=== PATIENT | female | born 1940 | race Caucasian/White ===

== ENCOUNTER 2019-05-17 05:22 | Inpatient (IN) | payer SELFPAY ==
[2019-04-24 13:49] VITALS: BP 159/63; PULSE 65; RESP 16; TEMP 36.3; O2SAT 96; BMI 40.2
--- NOTE | 2019-04-24 13:58 | SDCEKG_ITS ---
Test Reason : Blood Pressure : / mmHG Vent. Rate : 060 BPM Atrial Rate : 061 BPM P-R Int : 000 ms QRS Dur : 154 ms QT Int : 446 ms P-R-T Axes : 000 -88 081 degrees QTc Int : 446 ms Electronic atrial pacemaker Left axis deviation Non-specific intra-ventricular conduction block Inferior infarct , age undetermined Anterolateral infarct , age undetermined Abnormal ECG Confirmed by ISABELA VELAZQUEZ ([id number]), mapping editor PIO HOWARD ([id number]) on 04/26/2019 2:14:21 PM Referred By: Matthew Flores Confirmed By:ISABELA VELAZQUEZ
[2019-04-24 16:25] LABS: Absolute Neutrophil Count 4.8 X10^3/uL (2.0-7.7); Basophil# 0.04 X10^3/uL; Basophil% 0.6 % (0-1); Eosinophil# 0.17 X10^3/uL; Eosinophils% 2.6 % (0-5); Hematocrit 34.2 % (37-47); Hemoglobin 11.4 g/dL (12.0-15.0); Lymphocyte % 15.1 % (19-41); Mean Corp Hgb Conc 33.3 g/dL (32-36); Mean Corpuscular Hgb 32.3 pg (27.0-32.0); Mean Corpuscular Volume 96.9 fL (81-99); Mean Platelet Vol. 10.2 fl (6.2-12.0); Monocyte# 0.63 X10^3/uL; Monocyte% 9.5 % (0-10); NRBC Flagged by Analyzer 0 % (0-5); Neutrophil # 4.77 X10^3/uL (2.7-7.7); Neutrophil % 71.9 % (47-70); Platelet Count 263 K/mm3 (150-450); RBC Distribution Width CV 12.7 % (11.6-14.6); RBC Distribution Width SD 44.9 fl (35.1-43.9); Red Blood Count 3.53 M/mm3 (4.2-5.4); White Blood Count 6.6 K/mm3 (4.4-11.0)
--- NOTE | 2019-04-24 21:13 | HP.PCM_ITS ---
History and Physical History and Physical [facility] Patient Name: Tiera Drake : 1940 From: [place] [facility] PA-C DATE OF SURGERY: 05/17/2019 SCHEDULED PROCEDURE: revision right total hip arthroplasty HISTORY OF PRESENT ILLNESS: Preoperative history and physical exam was performed on April 24, 2019. This is a 78-year-old female who has had ongoing pain in her right hip since previous surgeries. Patient has had intermittent, aching, stabbing pain for the right hip. She has difficulty with pain going up and down stairs, walking, and riding in a vehicle. Patient has difficult time with activities of daily living including housework, shopping. She has fallen and tripped/stumbled due to the hip pain. Patient states she feels unsafe without the use of the Rollator/walker. Patient has had previous right total hip arthroplasty February 2013 in which she was doing well postoperatively. Patient had a back surgery in 2013 patient became ill after this sustaining a infection. Patient states the infection went to her hip and she had removal of a total hip in July 2014. Antibiotic spacer was placed. Patient then underwent revision total hip arthroplasty October 2014. Since that surgery she states her hip never felt the same. Patient sustained a fall in October 2017 landed on her hip. Patient underwent another back surgery in January 2018. Patient has continued to have difficulty and pain in her hip. Patient denies any recent chest pain, shortness of breath, fevers chills, recent infection. She has been limited in her weight on the right lower extremity with use of the Rollator. We have obtained surgical clearance from her community youth secretary Dr. Cotton and PCP Dr. Salinas. Patient has a medical history pertinent for coronary artery disease with pacemaker, previous stent 2016. She has had multiple heart cast. She has had recent echocardiogram August 2018. She has type 2 diabetes mellitus, aortic stenosis, hyperlipidemia, history of previous DVT, history of atrial fibrillation. After failing conservative measures and discussing treatment options with Dr. Matthew Flores, the patient does wish to proceed with a revision right total hip arthroplasty. REVIEW OF SYSTEMS: ROS: Const: Reports hard of hearing RT EAR Denies change in appetite, fever,or weight change. CV: Reports heart murmur, but denies chest pain and irregular heartbeat. Resp: Denies cough, pneumonia, SOB, tuberculosis and wheezing. GI: Reports heartburn, but denies constipation, diarrhea, difficulty swallowing, nausea, bloody stools and vomiting. : Urinary: reports incontinence. Musculo: Reports leg swelling, limp, trouble walking and weakness. Skin: Denies Raynaud's, history of shingles and tattoo. Neuro: Reports difficulty with balance but denies ambulatory dysfunction, dizziness, numbness/tingling and tremor. Psych: Reports stress, but denies anxiety and insomnia. Clement/Lymph: Reports anemia and past transfusion, but denies bleeding/bruising tendency. Reviewed, no changes. PAST MEDICAL HISTORY: Advance Care Plan: Other Directive, LIVING WILL Effective Date: 12/01/2018 PMH: Medical Problems: Arthritis, Coronary Artery Disease (CAD), Diabetes, High Blood Pressure, Hyperlipidemia, Celulitis Accidents: None Surgical Hx: Back Surgery - 2005/2006/2010/2013/2017 Gallbladder - (2006) Pacemaker - (11/2014) Heart Stent - (02/2015) 2 Heart Stents - (03/2016) RT Hip Antibiotic Spacer Placed - (07/2014) 2014 RT THR - (02/2013) RT THR Revision - (07/2014) Anesthesia Complications: Anesthesia Complications Assistive Devices: Cane, Dentures, Glasses, Walker Reviewed and updated. 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 Personal Habits: Cigarette Use: Never Smoked Cigarettes.Alcohol: Denies use.Drug Use: Denies Use.Enjoy Exercising: Never Exercises. Reviewed, no changes. VITALS: Ht: 60.5 Wt: 208lb Wt k.349 BMI: 39.9 BP: 157/71 Pulse: 67 Resp: 14 T: 96. 7 T: 35.9C ALLERGIES: Keflex - Rash Lopid - Nausea Januvia - Cold Hand Tricor Zetia - Itching Sulfa Drugs Benadryl Bactrim - Hives Atenolol Actos Captopril - Itching Glucophage - Nausea Statins - Muscle Pain Amoxicillin Cephalosporins - Rash MEDICATIONS: , Humalog 15 Unit And 13 Unit 3x daily, Hydrochlorothiazide 25 mg 1 by mouth every day, Lantis 29-30 Units bedtime, Nexium 40 mg 1 by mouth every day, B Complete 4x daily, Calcium 500 + D3 250-500 MG-Unit 3x daily, Joint Health 2x daily, Steedman-3 1000 mg 2X daily, Multivitamin Adult 1x daily, Ezetimibe 10 mg 1po qd, Acebutolol HCL 400 mg 1po qd, Clopidogrel Bisulfate 75 mg 1po qd, Ferrous Sulfate 325 mg 1po qd, Sertraline HCL 25 mg 2po qd, Narcosoft Herbal Lax 1po qd, Lecithin 4po qd, Vitamin E 400 Unit 1po qd, Vitamin D3 1po qd PRE-OP EXAM: General appearance:NORMAL Other: Eyes: Conjunctivae and lids: NORMAL Pupils: ERR Ears, Nose, Mouth, and Throat: NORMAL Other: Inspection of lips, teeth and gums: NORMAL Other: Neck: Examination of neck: no masses noted. Respiratory: Assessment of respiratory effort: NORMAL Other: Auscultation of lungs: clear to auscultation no wheezes, rhonchi or rales. Cardiovascular: Auscultation of heart: regular rate and rhythm, positive systolic murmur Exam of carotid arteries: NORMAL Other: Gastrointestinal: Exam of abdomen: soft, nontender, nondistended bowel sounds present. PHYSICAL EXAMINATION: Patient walks with an antalgic gait with protected weightbearing on the right lower extremity with use of a Rollator. Previous incisions are well healed without signs of erythema or infection. She has tenderness to palpation along the anterior and lateral right hip. Patient has increased pain with any range of motion of the right hip. Sensation intact to light touch. IMAGING STUDIES: Previous x-rays of the right hip reveal a cemented total hip arthroplasty with cerclage wires with cement mantel fracturing. Distally at appears well fixed but there is poor bone stock proximately with lysis of the greater trochanter bone. There is lucency between the underlying bone and cement mantle. The acetabular cup appears well fixed with screws. No appreciable lucencies around the cup. IMPRESSION: 1. Painful right total hip arthroplasty with loosening and previous fracture 2. Hypertension 3. Type 2 diabetes mellitus 4. Coronary artery disease with previous heart catheter, stent placement, pacemaker 5. Aortic stenosis 6. History of atrial fibrillation 7. Hyperlipidemia 8. History of DVT PLAN: Dr. Matthew Flores did discuss and review with the patient all treatment options including surgical versus nonsurgical options. Patient does wish to proceed with the above-stated procedure. Potential risks, benefits, and complications of the procedure were discussed in detail including but not limited to , infection, nerve and blood vessel damage, persistent pain, numbness, tingling, paresthesias, blood clot, pulmonary embolism, and requirement for possible further surgery. The patient expressed full understanding and has no further questions for the doctor. Patient does agree to proceed with the above-stated procedure and has signed the surgery consent form. Patient could not tolerate Xarelto, Pradaxa and Eliquis arthralgias/myalgias. She also is unable to take aspirin due to nosebleeds. She currently takes Plavix. we will require the use of Lovenox postoperatively for DVT prophylaxis. This dictation was created using voice recognition software. Phonetic and/or grammatical errors may exist. ___ I have re-examined the patient. There are no clinical changes since date of exam. ___ See progress notes for changes. ___ Dictated on admission Date: Time: Signature:
[2019-05-17] VITALS (15 sets, daily range): BP systolic 102–174; BP diastolic 41–63; PULSE 60–75; RESP 16–18; TEMP 36.3–36.6; O2SAT 92–100; BMI 40.2
[2019-05-17] MEDS: Lactated Ringers 500 ML 999 ML IV ×2 (06:11→11:30)
[2019-05-17] MEDS: Gabapentin 600 MG Tablet PO (06:23)
[2019-05-17] MEDS: Acetaminophen 500 MG Tablet 1000 MG PO ×3 (06:23→22:46)
[2019-05-17 06:55] LABS: Bedside Glucose 205 mg/dL (70-110)
[2019-05-17] MEDS: Insulin Lispro 100 UNIT/ML INSULN.PEN SC ×3 (07:09→22:49)
[2019-05-17] MEDS: Heparin 10,000 UNITS/10 ML Vial 10000 UNITS (08:25)
[2019-05-17] MEDS: dexAMETHasone 10 MG/ML Vial IV (08:25)
[2019-05-17] MEDS: Lactated Ringers 1,000 ML 125 ML IV ×3 (09:15→22:47)
--- NOTE | 2019-05-17 11:30 | RAD_ITS ---
STUDY: X-RAY - PELVIS AND RIGHT HIP REASON FOR EXAM: Female, 78 years old. Post op right total hip revision TECHNIQUE: 3 views of the pelvis and hip. COMPARISON: None. FINDINGS: The patient is status post revision of the right total hip replacement. There is a long femoral component. There is good alignment. Postoperative soft tissue changes. RAD/Hip Min 2 Views (Portable) IMPRESSION: 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 There is good alignment. Postoperative soft tissue changes. Electronically Signed: Ck Batista, at 13:07 EDT , Service support ,
--- NOTE | 2019-05-17 11:34 | PCM.OPRPT ---
Report of Operation Date of Procedure: 05/17/19 Pre-Operative Diagnosis: Right hip prosthetic loosening femoral component with periprosthetic greater trochanteric fracture. Post-Operative Diagnosis: Right hip prosthetic loosening femoral component with periprosthetic greater trochanteric fracture. Surgery/Procedure Performed:: Right hip revision total hip replacement both components Description of Surgical Findings:: Stable hip. Leg lengths restored. senior director: Lul Salazar Type of Anesthesia:: Spinal Anesthesiologist: Gilmer Saavedra Special Medications: 900 mg clindamycin, 1 g TXA at incision, 1 g TXA closure, 10 mg Decadron, joint cocktail (5 mg Duramorph, 30 mL of 0.5% Ropivicaine, 1000 units of epinephrine, 30 mg of Toradol). Additional 600 mg of clindamycin 2 and half hours after incision was made. Specimen's removed: 3 separate specimens were sent to microbiology. Resected bone was sent to pathology. Estimated Blood Loss (mL): 500 mL Fluids Replaced: 125 mL Cell Saver, 2 L crystalloid Description of Procedure: Components used: 1. [place] GMR S femoral component 11 mm x 203 mm in length, 30 mm extension, proximal femoral component with trochanteric 2. [place] Biolox delta 36 mm, 0 mm neck femoral head 3. [employer] 30 mm liner 4 mm lateralized, 20 degree posterior burgess Brief history operative indications: 78-year-old female who had previous hip replacement in [place] followed by infection and antibiotic spacer. New hip was reimplanted after two-stage revision. This was with the cement mantle. The cemented implant the cement mantle fractured and the greater trochanteric region also fractured. Based on her continued pain we did discuss potential for infection. Based on patient's medical comorbidities we elected to proceed with retention of implants that were well fixed. Risks and benefits were discussed with the patient which included but were not limited to blood loss, DVTs, PEs, infection, neurovascular damage, and dislocation. In light of all this patient did agree to proceed with a total hip arthroplasty. Procedure: On the date of procedure the patient's r hip was marked in the preoperative area. Patient was then taken back to the operating room where anesthesia assumed control of the C-spine and airway and administered anesthetic. Patient was transferred to the operating table and placed in the lateral decubitus position with the affected hip up. The patient was secured in the bed with the lateral positioners and leg lengths were checked. The r lower extremity was then prepped out in a sterile fashion using chlorhexidine while the surgeon scrubbed. Upon reentering the room the r lower extremity was draped in the standard orthopedic fashion and the incision was marked. A timeout was called and everyone agreed upon the side, the site, the procedure be performed, antibiotics given, and patient's identity. At this time incision was made through skin, subcutaneous tissue, and fat down to fascia. Once we got to the fascia we carefully identified this layer. The fascia was then incised and a Charley retractor was placed. At this point we attempted to identify identifiable structures. Based on the stiffness of the hip and rigidity as well as the expected resection the gluteus marcy was released. Once was done we carefully externally rotated the hip. 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 At this time we elected to resect this to help with exposure. After this was the resected we were able to carefully identify the hip. We did a careful synovectomy around the implant identified the cup. The hip was then reduced. The component was easily removed as well as the proximal portion of the cement mantle. Once we did the removal of the implant we found the additional cables. Based on the radiographs the bone was stable just below the second cable. We dissected around the femur and made a perpendicular saw cut and resected the additional bone. This was measured for our proximal implant. At this point we carefully debrided the cement mantle as well as possible. We reamed the bone. We did note that there was a cortical breach laterally. Based on this we elected to use the longer stem implant for better fixation and to fully bypass cortical breach. Once the femur was adequately prepped we then trialed with the previous liner in place. This gave us near equal leg lengths. For further stability we wanted to remove the 10 mm liner and placed a 20 mm liner. Also the previous liner fluid was in the posterior inferior position we needed to be in the posterior superior position for better stability. We exposed the acetabulum and used an osteotome to remove the liner. Once everything was removed from the hip we then used 6 L of normal saline to irrigate out the wound. We then opened the new liner and impacted into place after exploring the wound and verifying adequately debrided and irrigated. Hemostasis was then obtained. The femoral canal was adequately prepped and a cement restrictor was placed. The femoral components were open and the Mercedes tapers were impacted. 1 package of cement with 1 g of vancomycin was used to make a cement spacer around the body part of the femur. Once this was secured cement was mixed and the femoral canal was pressurized. The breech in the cortex was identified and excess cement was removed. The femoral component was cemented and 25 degrees anteversion based on the angle of the leg from the knee. Once the cement was cured we again trialed a 36 mm +0 mm femoral head. This gave us good leg lengths and a stable hip with a new liner. Hip was removed #5 FiberWire's were placed around the central portion of the neck where the holes were. Trunnion was cleaned. Final head was open and impacted into place. Hip was again reduced. He remained stable with good leg lengths. At this time the wound was copiously out normal saline. We did a chlorhexidine lavage as well as a TXA lavage. The injection was then placed. We then carefully used a #5 FiberWire's around the femoral neck to repair the soft tissues. The distal fascia was also repaired. The lateral fascia was repaired. A #1 Vicryl layer was used deep and 2-0 Vicryl for superficial skin closure as well as [place] for final skin closure. A sterile dressing was placed. Patient was awakened by anesthesia and transferred to the [facility]. Patient was then transferred to the PACU for recovery. Postoperative plan: Patient will get 24 hours postop antibiotics. Doxycycline for 7 days so we follow cultures patient will get in-house physical therapy and will be weight-bear as tolerated. Patient will follow up in office in 2 weeks for a wound check and x-rays. Strict posterior hip precautions for 3 weeks. - Complications No intraoperative complications - Admit VTE Documentation VTE Present on Admission: No VTE Mechan Device Prophylaxis: SCD's, Thigh High FLOYD Hose VTE Pharm Prophylaxis ordered?: Yes
[2019-05-17 12:20] LABS: Bedside Glucose 180 mg/dL (70-110)
--- NOTE | 2019-05-17 12:41 | HIP_PTH ---
PATIENT: MIGUEL BERRY LOC: [facility]3 U#:[id number] AGE/SX: 78/F [place] [facility] [place]: Dr. Sierra Virgen MD : 1940 BED: 1 DIS: 05/19/2019 SPEC #: [id number] RECD: 05/17/19 12:41 STATUS: VICTOR MANUEL RETrae #: [id number] BABS: 05/17/19 12:[address]: Matthew Flores DEPT: SURGICAL PATHOLOGY RECD BY: Eb Mendoza ENTERED: 05/17/19 13:05 SP TYPE: TOTAL HIP OTHR DR: Dr. Mumtaz Salinas MD Tissues: Hip, NOS Procedures: Decalcification bone/plaque Surgery Specimen Level IV HEADER OPERATION: ERAS, revision total hip arthroplasty PRE-OP DIAGNOSIS: Painful right total hip arthroplasty with loosening and previous fracture TISSUE SUBMITTED: Right femur bone MICROSCOPIC DIAGNOSIS Right femur bone, revision total hip arthroplasty: Pieces of bone with reactive changes. Fragments of dense fibroconnective tissue and reactive synovial tissue with histiocytic reaction and foreign body giant cell reaction. DAVID:jess 05/22/19 MICROSCOPIC DESCRIPTION Slides are reviewed. GROSS DESCRIPTION Received is one container labeled with the patient's name and designated right femoral bone. The specimen consists of two pieces of bone. One segment consists of a tubular portion of bone measuring 7 cm in length and 4 cm in diameter and contains a metallic cable at one end. The second fragment consists of a U-shaped fragment of bone measuring 6.5 x 4.5 x 3.5 cm. Adherent fragments of pink-yellow soft tissue are noted on both fragments. Mail Carrier And Clerk sections are submitted in two cassettes as follows: 1 - soft tissue, 2 - packaging sales representative sections of U-shaped fragment of bone after decalcification. / AM:jess 05/17/19 TC:5 CPT: 92518, [id number]
--- NOTE | 2019-05-17 14:15 | PCM.CONS.GEN ---
Problem List (1) Osteoarthritis of right hip Status: Chronic Qualifiers: Osteoarthritis type: unspecified Qualified Code(s): M16.11 - Unilateral primary osteoarthritis, right hip (2) HTN (hypertension) Status: Chronic Qualifiers: Hypertension type: essential hypertension Qualified Code(s): I10 - Essential (primary) hypertension (3) HLD (hyperlipidemia) Status: Chronic Qualifiers: Hyperlipidemia type: unspecified Qualified Code(s): E78.5 - Hyperlipidemia, unspecified (4) CAD (coronary artery disease) Status: Chronic Qualifiers: Coronary Disease-Associated Artery/Lesion type: unspecified vessel or lesion type [place] vs. 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: with correction use Diabetes mellitus complication status: with other specified complication Qualified Code(s): E11.69 - Type 2 diabetes mellitus with other specified complication; Z79.4 - care home (current) use of insulin (6) Morbid obesity Status: Chronic (7) Valvular heart disease Status: Chronic (8) GERD (gastroesophageal reflux disease) Status: Chronic Qualifiers: Esophagitis presence: esophagitis presence not specified Qualified Code(s): K21.9 - Gastro-esophageal reflux disease without esophagitis (9) PAF (paroxysmal atrial fibrillation) Status: Chronic (10) History of DVT (deep vein thrombosis) Status: Chronic (11) Anxiety and depression Status: Chronic Reason for Consult Date of Consultation: 05/17/19 Reason for Consultation: Medical management History of Present Illness: The patient is a 78 y/o F w/ PMHx: Valvular Heart Disease (Aortic stenosis), Anxiety and Depression, Diabetes mellitus type II, Morbid obesity, HTN, HLD, Fe deficiency anemia, Hx DVT, PAF, Hx MIs, CAD s/p PCI who presents to the [facility] on 05/17/19 for planned surgery per Dr. Flores. Patient with history of prior hip replacement, right in [place] with unfortunate postoperative infection requiring antibiotic spacer with a new hip reimplanted after two-stage revision at that time with unfortunate cement mantle fracturing as well as greater trochanteric region fracture with ongoing pain and infection risk therefore right hip revision with a total hip replacement of components performed. Medical consultation requested per orthopedic surgery. Patient denies any acute complaints post-operative. She notes feeling fatigued and groggy but notes pain controlled. Past Medical History Past Medical History (Chronic Problems): Chronic Problems Osteoarthritis of right hip (Chronic) HTN (hypertension) (Chronic) HLD (hyperlipidemia) (Chronic) CAD (coronary artery disease) (Chronic) Diabetes mellitus, type II (Chronic) Morbid obesity (Chronic) Valvular heart disease (Chronic) GERD (gastroesophageal reflux disease) (Chronic) PAF (paroxysmal atrial fibrillation) (Chronic) History of DVT (deep vein thrombosis) (Chronic) Anxiety and depression (Chronic) Allergies amoxicillin Allergy (Verified 05/17/19 06:00) Unknown apixaban [From Eliquis] Allergy (Verified 05/17/19 06:00) Unknown atenolol Allergy (Verified 05/17/19 06:00) Unknown cephalexin [From Keflex] Allergy (Verified 05/17/19 06:00) Rash Cephalosporins Allergy (Verified 05/17/19 06:00) Rash ezetimibe [From Zetia] Allergy (Verified 05/17/19 06:00) Itching fenofibrate [From Tricor] Allergy (Verified 05/17/19 06:00) Unknown hydrocodone [From [place]] Allergy (Verified 05/17/19 06:00) Rash pioglitazone [From Actos] Allergy (Verified 05/17/19 06:00) Unknown sulfamethoxazole [From Bactrim] Allergy (Verified 05/17/19 06:00) Hives trimethoprim [From Bactrim] Allergy (Verified 05/17/19 06:00) Hives captopril Adverse Reaction (Verified 05/17/19 06:00) Itching diphenhydramine [From Benadryl] Adverse Reaction (Verified 05/17/19 06:00) Unknown gemfibrozil [From Lopid] Adverse Reaction (Verified 05/17/19 06:00) Nausea metformin [From Glucophage] Adverse Reaction (Verified 05/17/19 06:00) Nausea sitagliptin [From Januvia] Adverse Reaction (Verified 05/17/19 06:00) cold hands Jgvffyi-Lbf-Udf Reductase Inhibitor Adverse Reaction (Verified 05/17/19 06:00) muscle pain Sulfa (Sulfonamide Antibiotics) Adverse Reaction (Verified 05/17/19 06:00) Unknown Home Medications: Ambulatory Orders Medication Instructions Recorded Acebutolol HCl 400 mg PO BID 04/24/19 Calcium Carb/Vit D3/Minerals [Sm 1 ea PO BID 04/24/19 Calcium 600+Minerals Tab] Cholecalciferol (VIT D3) [Vitamin 1,000 unit PO DAILY 04/24/19 D] Clopidogrel Bisulfate [Clopidogrel] 75 mg PO DAILY 04/24/19 Esomeprazole Mag Trihydrate 40 mg PO DAILY 04/24/19 [Nexium] Ezetimibe [Zetia] 10 mg PO DAILY 04/24/19 Ferrous Sulfate 325 mg PO DAILY 04/24/19 Herb Lax 1 tab PO PRN PRN 04/24/19 Hydrochlorothiazide [Hctz] 25 mg PO DAILY 04/24/19 Insulin Glargine [Lantus ([facility])] 25 - 28 units SUBCUT QHS 04/24/19 Insulin Lispro [Humalog KwikPen] 17 unit SQ DAILY 04/24/19 Insulin Lispro [Humalog KwikPen] 17 unit SQ DINNER 04/24/19 Insulin Lispro [Humalog Kwikpen] 12 unit SQ LUNCH 04/24/19 Lecithin, Soy [Lecithin] 800 mg PO BID 04/24/19 Liver Detox Complex 1 tab PO BID 04/24/19 Multivitamin with Minerals 1 ea PO DAILY 04/24/19 [Multiple Vitamin] Alliance Guard 1 tab PO BID 04/24/19 Sertraline HCl [Zoloft] 25 mg PO BID 04/24/19 Sr Camila C 500 mg PO BID 04/24/19 Vital Mag 1 tab PO DAILY 04/24/19 Vitamin B Complex 1 ea PO BID 04/24/19 Vitamin E 400 unit PO DAILY 04/24/19 Surgical History: - - Prior right total hip replacement with eventual antibiotic spacer and two-stage revision, recent surgical intervention per Dr. Flores with revision of right total hip arthroplasty, back surgery, cholecystectomy, PCI, pacemaker placement. 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 Denies: Chills, Fever, Weight Change HEENT: Denies: Head Aches, Sinus Congestion, Sinus Drainage Cardiovascular: Denies: Chest Pain, Palpitations Respiratory: Denies: Cough, Shortness of breath at rest, Sputum production Gastrointestinal: Denies: Abdominal Pain, Nausea, Vomiting Genitourinary: Denies: Dysuria Musculoskeletal: Reports: Joint Pain, Joint stiffness, Joint swelling, Joint Tenderness, Leg Pain Skin: Reports: Skin Changes. Denies: Rash, Wounds Neurological: Denies: Numbness, Tingling, Focal weakness Psychiatric: Reports: Anxiety, Depression. Denies: Homicidal Ideations, Suicidal Ideations Hematologic/ Lymphatic: Reports: Anemia. Denies: Easy Bruising, Easy Bleeding Subjective: Laying in the medical surgical bed, fatigued and mildly groggy, notes pain controlled. Objective: Physical Examination: General: awakens but groggy, alert when awoken, oriented x 3 and cooperative, laying in the medical surgical bed, fatigued, denies any pain. Skin: normal color, turgor, no icterus, cyanosis except expected postop changes with dressing in place status post right hip revision. HEENT: AT/NC, EOMI, PERRLA, dry MM, no carotid bruits or JVD noted. Lungs: CTA bilaterally, moderate effort, moderate decrease BL bases, no rales, ronchi or wheezing. Heart: Paced; no gallop, rub audible. Abdomen: soft, morbidly obese, NTTP, ND, normal BS, no HSM; however habitus makes examination difficult. Extremities: no cyanosis, clubbing, status post right hip revision, dressing in place. Neurological: Patient awakens but groggy, alert when awoken, oriented x 3; cognitive function decreased given fatigue and grogginess but near baseline intact; pupils equally reactive to light and accomodation; cranial nerves II-XII grossly normal, moving extremities but limitation right lower extremity given recent right hip revision, strength accordingly severely global decrease. Psychiatric: affect appears fatigued, flat, no acute evidence of depressive or anxiety feelings. - Physical Exam Vitals/I&O's: Vital Signs Temp Pulse Resp BP Pulse Ox 97.8 F 60 18 137/58 H 100 05/17/19 13:28 05/17/19 13:28 05/17/19 13:28 05/17/19 13:28 05/17/19 13:28 Oxygen Flow Rate (L/min) 6 Oxygen Delivery Method Simple Mask Weight: 209 lb 7.026 oz Body Mass Index (BMI) 40.2 Finger Stick Blood Glucose 180 Intake and Output for Last 24 Hours 05/15/19 05/16/19 05/17/19 23:59 23:59 23:59 Intake Total 1779 Balance 1779 Laboratory Results 05/17/19 06:08: POC Glucose 205 H 05/17/19 12:09: POC Glucose 180 H Current Medications Acetaminophen (Tylenol) 1,000 mg PO Q8 [facility] Calcium/Vitamin D (Os-Meliton 500mg + D) 1 tablet PO BIDCM [facility] Cholecalciferol (Vitamin D (25mcg)) 1,000 unit PO DAILYCM [facility] Clopidogrel Bisulfate (Plavix) 75 mg PO DAILY [facility] Doxycycline Monohydrate (Doxycycline) 100 mg PO BID [facility] Ezetimibe (Zetia) 10 mg PO DAILY [facility] Enoxaparin Sodium (Lovenox) 40 mg SC DAILY@0600 [facility] Enteral Nutritional Formula (Ensure Surgery) 237 ml PO TIDCM [facility] Famotidine (Pepcid) 20 mg PO DAILY [facility] Ferrous Sulfate (Ferrous Sulfate) 325 mg PO DAILY@0800 [facility] Hydrochlorothiazide (Hctz) 25 mg PO DAILY [facility] Lactated Ringer's () 1,000 mls @ 125 mls/hr IV .Q8H [facility] Last Admin: 05/17/19 12:16 Dose: 125 mls/hr Documented by: Lactated Ringer's () 1,000 mls @ 125 mls/hr IV .Q8H [facility] Clindamycin Phosphate 600 mg/ (Dextrose) 54 mls @ 100 mls/hr IV Q6H [facility] Stop: 05/18/19 05:33 Insulin Glargine (Lantus ([facility])) 25 - 28 units SC QHS [facility] Insulin Human Lispro (Humalog Kwikpen (Bk)) 12 unit SC LUNCH [facility] Insulin Human Lispro (Humalog Kwikpen (Bk)) 17 unit SC DAILY@0800 [facility] Insulin Human Lispro (Humalog Kwikpen (Bkc)) 17 unit SC DINNER [facility] Ketorolac Tromethamine (Toradol ([facility])) 15 mg IV Q6H PRN PRN PRN Reason: Pain Score 1-5/10 Stop: 05/19/19 11:32 Meloxicam (Mobic) 7.5 mg PO BID [facility] Morphine Sulfate () 2 - 4 mg IV Q2H PRN PRN PRN Reason: Pain Score 4-10/10 Morphine Sulfate () 2 - 4 mg IV Q2H PRN PRN PRN Reason: Pain Score 4-10/10 Multivitamins/Minerals (Multivitamin With Minerals (Bkc)) 1 tablet PO DAILY@0800 [facility] Non-Formulary Medication (Acebutolol Hcl) 400 mg PO BID [facility] Ondansetron HCl (Zofran) 4 mg IV Q8H PRN PRN PRN Reason: NAUSEA Oxycodone HCl (Oxyir) 5 - 10 mg PO Q4H PRN PRN PRN Reason: Pain Score 4-10/10 Pantoprazole Sodium (Protonix) 40 mg PO DAILY [facility] Promethazine HCl (Phenergan) 12.5 mg IM Q6H PRN PRN; Protocol PRN Reason: NAUSEA/VOMITING Senna/Docusate Sodium (Senokot-S, Pattie-Colace) 2 tablet PO BID [facility] Sertraline HCl (Zoloft) 25 mg PO BID [facility] Assessment/Plan The patient is a 78 y/o F w/ PMHx: Valvular Heart Disease (Aortic stenosis), Anxiety and Depression, Diabetes mellitus type II, Morbid obesity, HTN, HLD, Fe deficiency anemia, Hx DVT, PAF, Hx MIs, CAD s/p PCI who presents to the [facility] on 05/17/19 for planned surgery per Dr. Flores, right hip revision with a total hip replacement of components performed. 1. Right hip pain, increased infection risk status post right hip replacement cement mantle fracturing and greater trochanteric region fracture: Failed conservative therapies and treatments, admitted per Dr. Flores for planned 05/17/19 right hip revision with a total hip replacement of components, post-operative pain management, bowel regimen, DVT Prophylaxis, PT/OT/CM per Orthopedic surgery discretion. 2. CAD: Status post PCI and several MIs noted, continue patient home Plavix per orthopedic surgery discretion, Zetia regimen. Patient is not on beta-herman therapy nor [place] inhibitor/ARB nor statin secondary to allergies noted. 3. Diabetes mellitus type II: Continue home insulin regimen, ADA diet, accu checks w/ ISS, given morbid obesity with significant joint disease will request nutrition consultation for education and teaching as weight loss would benefit her diabetes as well as other comorbidities including osteoarthritis. 4. Hypertension: Continue home regimen including hydrochlorothiazide, PRN hydralazine. 5. Iron deficiency anemia: We will continue iron supplementation. 6. Hyperlipidemia: Maintained on Zetia regimen. 7. Morbid Obesity: Weight loss and lifestyle changes encouraged, nutrition consulted. 8. Anxiety and depression: We will continue patient home Zoloft regimen. 9. PAF: Maintained on Plavix, not anticoagulated, not on rate or rhythm agent, atrial paced status post pacemaker placement. 10. History of DVT: Continue prophylaxis per orthopedic surgery discretion. 11. Valvular heart disease: Noted history of aortic stenosis, no echocardiogram noted in [facility]. 12. GERD: Maintained on famotidine. 13. DVT prophylaxis: SCDs, Lovenox noted per orthopedic surgery discretion. Office Visits / Consults: [id number] OP Consult L3
[2019-05-17 16:56] LABS: Bedside Glucose 244 mg/dL (70-110)
[2019-05-17] MEDS: Ensure Surgery 237 ML LIQUID PO (16:57)
[2019-05-17] MEDS: Calcium Carb/Vitamin D 1 TABLET Tablet PO (18:00)
[2019-05-17] MEDS: Insulin Lispro 100 UNIT/ML INSULN.PEN 17 UNIT SC (18:01)
[2019-05-17] MEDS: Lactated Ringers 1,000 ML 999 ML IV (21:19)
[2019-05-17 22:26] LABS: Bedside Glucose 210 mg/dL (70-110)
[2019-05-17] MEDS: Senna/Docusate Sodium 1 Tablet 2 TABLET PO (22:45)
[2019-05-17] MEDS: Sertraline 50 MG Tablet 25 MG PO (22:45)
[2019-05-17] MEDS: Doxycycline 100 MG CAPSULE PO (22:45)
[2019-05-18] VITALS (17 sets, daily range): BP systolic 94–131; BP diastolic 33–52; PULSE 65–74; RESP 16–18; TEMP 36.1–37.2; O2SAT 89–100
[2019-05-18 05:54] LABS: Hematocrit 21.8 % (37-47); Hemoglobin 7.3 g/dL (12.0-15.0); Mean Corp Hgb Conc 33.5 g/dL (32-36); Mean Corpuscular Hgb 33.3 pg (27.0-32.0); Mean Corpuscular Volume 99.5 fL (81-99); Mean Platelet Vol. 9.7 fl (6.2-12.0); Platelet Count 227 K/mm3 (150-450); RBC Distribution Width CV 12.5 % (11.6-14.6); RBC Distribution Width SD 44.8 fl (35.1-43.9); Red Blood Count 2.19 M/mm3 (4.2-5.4); White Blood Count 15.5 K/mm3 (4.4-11.0)
[2019-05-18 06:23] LABS: Anion Gap 8 (5-15); BUN 20 mg/dL (7-18); BUN/Creat Ratio 21.1 RATIO (10-20); Calcium,Total 8.7 mg/dL (8.5-10.1); Chloride 97 mmol/L (98-107); Creatinine, Serum 0.95 mg/dL (0.55-1.02); EST Glomerular Filtration Rate 60 mL/min (>60); Est Glom Filt Rate - Afr Amer 73 mL/min (>60); Estimated Creatinine Clearance 34.49 ml/min; Glucose 188 mg/dL (74-106); Potassium 4.5 mmol/L (3.5-5.1); Sodium Level 133 mmol/L (136-145)
[2019-05-18] MEDS: Acetaminophen 500 MG Tablet 1000 MG PO ×3 (06:46→22:06)
[2019-05-18] MEDS: Enoxaparin 40 MG/0.4 ML Syringe SC (06:47)
[2019-05-18] MEDS: Pantoprazole Sodium 40 MG Tablet PO (06:47)
[2019-05-18] MEDS: Lactated Ringers 1,000 ML 125 ML IV (06:50)
[2019-05-18 06:55] LABS: Bedside Glucose 183 mg/dL (70-110)
--- NOTE | 2019-05-18 08:04 | PCM.PN.ORT ---
Subjective: The patient was sitting in bed upon examination. Patient denies any chest pain, shortness of breath, dizziness, lightheadedness, or vomiting, or calf pain. However yesterday patient did have some dizziness. She also had some nausea this morning but has been improved pain is controlled on medications. No adverse overnight events. Pain is been very well controlled. She denies any numbness and tingling. Objective: Vital signs stable and afebrile. Patient did have a drop in blood pressure yesterday and overnight. Her heart rate has been stable. Patient is able to plantarflex and dorsiflex actively. Sensation is intact to light touch to saphenous, sural, superficial and deep peroneal, and tibial distribution. Dressing is clean dry and intact. Patient does appear to be slightly pale on clinical exam. Right thigh is soft and supple Negative Homans bilaterally, negative signs and symptoms of DVT. - Physical Exam Vitals/I&O's: Vital Signs Temp Pulse Resp BP Pulse Ox 97.5 F L 74 18 123/41 H 100 05/18/19 03:19 05/18/19 03:19 05/18/19 03:19 05/18/19 03:19 05/18/19 03:19 Oxygen Flow Rate (L/min) 2 Oxygen Delivery Method Nasal Cannula Weight: 95 kg Body Mass Index (BMI) 40.2 Finger Stick Blood Glucose 180 Intake and Output for Last 24 Hours 05/16/19 05/17/19 05/18/19 23:59 23:59 23:59 Intake Total 3890.08 / 4390.08 1870.67 / 1870.67 Output Total 1000 / 1000 Balance 3890.08 / 3790.08 870.67 / 870.67 General: Alert, Oriented x3, Cooperative, No apparent distress Microbiology Past 72 Hours 05/17/19 10:50 Tissue - Hip Gram Stain - Final 05/17/19 10:50 Tissue - Hip Gram Stain - Final 05/17/19 10:50 Tissue - Hip Gram Stain - Final Laboratory Results 05/17/19 12:09: POC Glucose 180 H 05/17/19 16:51: POC Glucose 244 H 05/17/19 22:17: POC Glucose 210 H 05/18/19 05:40: WBC 15.5 H, RBC 2.19 L, Hgb 7.3 L, Hct 21.8 L, MCV 99.5 H, MCH 33.3 H, MCHC 33.5, RDW Std Deviation 44.8 H, RDW Coeff of Bettye 12.5, Plt Count 227, MPV 9.7 05/18/19 05:40: Sodium 133 L, Potassium 4.5, Chloride 97 L, Carbon Dioxide 28.0, Anion Gap 8, BUN 20 H, Creatinine 0.95, Estim Creat Clear Calc 34.49, Est GFR (MDRD) Af Amer 73, Est GFR (MDRD) Non-Af 60, BUN/Creatinine Ratio 21.1 H, Glucose 188 H, Calcium 8.7 05/18/19 06:43: POC Glucose 183 H 05/18/19 07:15: Blood Type Pending, Antibody Screen Pending, Crossmatch See Detail Current Medications Acebutolol HCl (Acebutolol Hcl) 400 mg PO BID [facility] Acetaminophen (Tylenol) 1,000 mg PO Q8 [facility] Last Admin: 05/18/19 06:46 Dose: 1,000 mg Documented by: Calcium/Vitamin D (Os-Meliton 500mg + D) [facility] Admin: 05/17/19 18:00 Dose: 1 tablet Documented by: Cholecalciferol (Vitamin D (25mcg)) [facility] Clopidogrel Bisulfate (Plavix) 75 mg PO DAILY [facility] Doxycycline Monohydrate (Doxycycline) 100 mg PO BID [facility] Last Admin: 05/17/19 22:45 Dose: 100 mg Documented by: Ezetimibe (Zetia) 10 mg PO DAILY [facility] Enoxaparin Sodium (Lovenox) 40 mg SC DAILY@0600 [facility] Last Admin: 05/18/19 06:47 Dose: 40 mg Documented by: Enteral Nutritional Formula (Ensure Surgery) 237 ml PO TIDCM [facility] Last Admin: 05/17/19 16:57 Dose: 237 ml Documented by: Famotidine (Pepcid) 20 mg PO DAILY [facility] Ferrous Sulfate (Ferrous Sulfate) 325 mg PO DAILY@0800 [facility] Hydralazine HCl (Apresoline Iv) 10 mg IV Q4H PRN PRN PRN Reason: SBP > 160 Hydrochlorothiazide (Hctz) 25 mg PO DAILY [facility] Lactated Ringer's () 1,000 mls @ 125 mls/hr IV .Q8H [facility] Last Infusion: 05/18/19 08:01 Dose: 0 mls/hr Documented by: Insulin Glargine (Lantus ([facility])) 25 units SC QHS [facility] Last Admin: 05/17/19 22:49 Dose: 20 u Documented by: Insulin Human Lispro (Humalog Kwikpen ([facility])) 12 unit SC LUNCH [facility] Insulin Human Lispro (Humalog Kwikpen ([facility])) 17 unit SC DAILY@0800 [facility] Insulin Human Lispro (Humalog Kwikpen ([facility])) 17 unit SC DINNER [facility] Last Admin: 05/17/19 18:01 Dose: 17 u Documented by: Insulin Human Lispro (Humalog Kwikpen ([facility])) 0 unit SC ACHS [facility]; Protocol Last Admin: 05/17/19 22:49 Dose: 2 u Documented by: Ketorolac Tromethamine (Toradol ([facility])) 15 mg IV Q6H PRN PRN PRN Reason: Pain Score 1-5/10 Stop: 05/19/19 11:32 Meloxicam (Mobic) 7.5 mg PO BID [facility] Morphine Sulfate () 2 - 4 mg IV Q2H PRN PRN PRN Reason: Pain Score 4-10/10 Morphine Sulfate () 2 - 4 mg IV Q2H PRN PRN PRN Reason: Pain Score 4-10/10 Multivitamins/Minerals (Multivitamin With Minerals ([facility])) 1 tablet PO DAILY@0800 [facility] Ondansetron HCl (Zofran) 4 mg IV Q8H PRN PRN PRN Reason: NAUSEA Oxycodone HCl (Oxyir) 5 - 10 mg PO Q4H PRN PRN PRN Reason: Pain Score 4-10/10 Pantoprazole Sodium (Protonix) 40 mg PO DAILY [facility] Last Admin: 05/18/19 06:47 Dose: 40 mg Documented by: Promethazine HCl (Phenergan) 12.5 mg IM Q6H PRN PRN; Protocol PRN Reason: NAUSEA/VOMITING Senna/Docusate Sodium (Senokot-S, Pattie-Colace) 2 tablet PO BID [facility] Last Admin: 05/17/19 22:45 Dose: 2 tablet Documented by: Sertraline HCl (Zoloft) 25 mg PO BID [facility] Last Admin: 05/17/19 22:45 Dose: 25 mg Documented by: Sodium Chloride () 10 - 40 ml IV UD PRN PRN Reason: SALINE FLUSH Medical Necessity - Tobacco Use Smoking Status: Never smoker Tobacco Use: Non-smoker Assessment/Plan 1. S/P right revision total hip arthroplasty POD #1 2. Continue Pain Medications: Tylenol and OxyIR 3. DVT Prophylaxis: Lovenox for 2 weeks postoperatively 4. PT/OT: Weightbearing as tolerated with walker. Strict posterior hip dislocation precautions for 3 months. 5. Postoperative anemia secondary to acute blood loss versus hemodilution, H & H: 7.3/21.8, patient has had drop in blood pressure. Preoperatively patient's hemoglobin was 11.4. 2 units of packed red blood cells has been ordered by the hospitalist secondary to the blood loss. Patient's right thigh is soft and supple with no drainage over incision. Patient does have history of iron deficiency 6. Reactive leukocytosis: Currently 15.5, afebrile. Patient did receive Decadron intraoperatively 7. Continue antibiotics while following cultures: Currently pending. Patient will be on doxycycline for 1 week postoperatively 8. Encouraged Incentive Spirometry 9. Continue postoperative medical management per medicine: Appreciate input and assistance with medical comorbidities 10. Disposition: Plan will be for possible discharge home in which patient wishes to try. I did discuss with her that we need to make sure that she is safe from a physical therapy standpoint. At this time due to the revision and current drop in hemoglobin patient will require additional stay until she is medically stable and safe to go home. Case management will be involved for appropriate discharge.
[2019-05-18] MEDS: Insulin Lispro 100 UNIT/ML INSULN.PEN 17 UNIT SC ×2 (08:35→17:02)
[2019-05-18] MEDS: Insulin Lispro 100 UNIT/ML INSULN.PEN SC ×4 (08:36→22:17)
[2019-05-18] MEDS: Ferrous Sulfate 325 MG Tablet PO (08:37)
[2019-05-18] MEDS: Calcium Carb/Vitamin D 1 TABLET Tablet PO ×2 (08:37→17:04)
[2019-05-18] MEDS: Multivitamins,Ther W-Minerals Tablet 1 TABLET PO (08:37)
[2019-05-18] MEDS: hydroCHLOROthiazide 25 MG Tablet PO (08:39)
[2019-05-18] MEDS: Doxycycline 100 MG CAPSULE PO ×2 (08:40→22:08)
[2019-05-18] MEDS: Senna/Docusate Sodium 1 Tablet 2 TABLET PO ×2 (08:40→22:07)
[2019-05-18] MEDS: Clopidogrel Bisulfate 75 MG Tablet PO (08:40)
[2019-05-18] MEDS: Famotidine 20 MG Tablet PO (08:40)
[2019-05-18] MEDS: Sertraline 50 MG Tablet 25 MG PO ×2 (08:41→22:07)
[2019-05-18] MEDS: Ensure Surgery 237 ML LIQUID PO ×3 (08:44→17:04)
[2019-05-18] MEDS: Ezetimibe 10 MG Tablet PO (08:44)
--- NOTE | 2019-05-18 10:29 | PN_ITS ---
Subjective: Patient seen and examined. She is postop day 1 for right tota hip revision. She has no complaints this morning. Pain is well controlled and she has remained hemodynamically stable. Hemoglobin noted to be 7.3 today. Only previous hemoglobin on file is from 04/24/2019 which was 11.4. Vitals/I&O's: Vital Signs Temp Pulse Resp BP Pulse Ox 97.7 F L 65 16 103/46 L 89 05/18/19 08:21 05/18/19 08:21 05/18/19 08:21 05/18/19 08:21 05/18/19 08:26 Oxygen Flow Rate (L/min) 2 Oxygen Delivery Method Room Air Weight: 209 lb 7.026 oz Body Mass Index (BMI) 40.2 Finger Stick Blood Glucose 180 Intake and Output for Last 24 Hours 05/16/19 05/17/19 05/18/19 23:59 23:59 23:59 Intake Total 3890.08 / 4390.08 1870.67 / 1870.67 Output Total 1000 / 1000 Balance 3890.08 / 3790.08 870.67 / 870.67 General: Alert, Oriented x3, Cooperative HEENT: Atraumatic, PERRLA, EOMI, Normocephalic Oral: Moist Mucosa Neck: Supple, No JVD, Negative Carotid Bruits Lungs: Clear to auscultation, Normal air movement, No rhonchi, No wheeze, No rales Cardiovascular: Regular rate, Regular Rhythm, Normal S1, Normal S2, No murmurs Abdomen: Bowel Sounds Present, Soft, Non Tender, Non-Distended, No Hepato- splenomegaly Extremities: No clubbing, No cyanosis, No edema, Capillary Refill Less than 3 Seconds Skin: No rashes, No breakdown Musculoskeletal: No Tenderness to Palpation of Joints or Extremities, - - intact right hip dressing. Lymphatic: No Cervical, Supraclavicular, or Inguinal Adenopathy Neurological: Cranial nerves II-XII grossly intact, Neuro grossly intact, Motor Exam 5/5 strength throughout Psych/Mental Status: Normal Affect, Appropriate, Alert and oriented to time, place, person, mood and affect Microbiology Past 72 Hours 05/17/19 10:50 Tissue - Hip Gram Stain - Final 05/17/19 10:50 Tissue - Hip Gram Stain - Final 05/17/19 10:50 Tissue - Hip Gram Stain - Final Laboratory Results 05/17/19 12:09: POC Glucose 180 H 05/17/19 16:51: POC Glucose 244 H 05/17/19 22:17: POC Glucose 210 H 05/18/19 05:40: WBC 15.5 H, RBC 2.19 L, Hgb 7.3 L, Hct 21.8 L, MCV 99.5 H, MCH 33.3 H, MCHC 33.5, RDW Std Deviation 44.8 H, RDW Coeff of Bettye 12.5, Plt Count 227, MPV 9.7 05/18/19 05:40: Sodium 133 L, Potassium 4.5, Chloride 97 L, Carbon Dioxide 28.0, Anion Gap 8, BUN 20 H, Creatinine 0.95, Estim Creat Clear Calc 34.49, Est GFR (MDRD) Af Amer 73, Est GFR (MDRD) Non-Af 60, BUN/Creatinine Ratio 21.1 H, Glucose 188 H, Calcium 8.7 05/18/19 06:43: POC Glucose 183 H 05/18/19 07:15: Blood Type Cancelled, Antibody Screen Cancelled, Crossmatch See Detail 05/18/19 08:00: Blood Type O POSITIVE, Antibody Screen NEGATIVE, Crossmatch See Detail Diagnostic Data Hip X-Ray 05/17/19 11:30 IMPRESSION: 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 There is good alignment. Postoperative soft tissue changes. Electronically Signed: Ck Batista, at 13:07 EDT , Service support , Current Medications Acebutolol HCl (Acebutolol Hcl) 400 mg PO BID [facility] Last Admin: 05/18/19 08:39 Dose: 400 mg Documented by: Acetaminophen (Tylenol) 1,000 mg PO Q8 [facility] Last Admin: 05/18/19 06:46 Dose: 1,000 mg Documented by: Calcium/Vitamin D (Os-Meliton 500mg + D) [facility] Last Admin: 05/18/19 08:37 Dose: 1 tablet Documented by: Cholecalciferol (Vitamin D (25mcg)) 1,000 unit [facility] Last Admin: 05/18/19 08:37 Dose: 1,000 unit Documented by: Clopidogrel Bisulfate (Plavix) 75 mg PO DAILY [facility] Last Admin: 05/18/19 08:40 Dose: 75 mg Documented by: Doxycycline Monohydrate (Doxycycline) 100 mg PO BID [facility] Last Admin: 05/18/19 08:40 Dose: 100 mg Documented by: Ezetimibe (Zetia) 10 mg PO DAILY [facility] Last Admin: 05/18/19 08:44 Dose: 10 mg Documented by: Enoxaparin Sodium (Lovenox) 40 mg SC DAILY@0600 [facility] Last Admin: 05/18/19 06:47 Dose: 40 mg Documented by: Enteral Nutritional Formula (Ensure Surgery) 237 ml PO TIDCM [facility] Last Admin: 05/18/19 08:44 Dose: 237 ml Documented by: Famotidine (Pepcid) 20 mg PO DAILY [facility] Last Admin: 05/18/19 08:40 Dose: 20 mg Documented by: Ferrous Sulfate (Ferrous Sulfate) 325 mg PO DAILY@0800 [facility] Last Admin: 05/18/19 08:37 Dose: 325 mg Documented by: Hydralazine HCl (Apresoline Iv) 10 mg IV Q4H PRN PRN PRN Reason: SBP > 160 Hydrochlorothiazide (Hctz) 25 mg PO DAILY [facility] Last Admin: 05/18/19 08:39 Dose: 25 mg Documented by: Lactated Ringer's () 1,000 mls @ 125 mls/hr IV .Q8H [facility] Last Admin: 05/18/19 10:26 Dose: Not Given Documented by: Insulin Glargine (Lantus (Bkc)) 25 units SC QHS [facility] Last Admin: 05/17/19 22:49 Dose: 20 u Documented by: Insulin Human Lispro (Humalog Kwikpen (Bkc)) 12 unit SC LUNCH [facility] Insulin Human Lispro (Humalog Kwikpen (Bkc)) 17 unit SC DAILY@0800 [facility] Last Admin: 05/18/19 08:35 Dose: 17 u Documented by: Insulin Human Lispro (Humalog Kwikpen (Bkc)) 17 unit SC DINNER [facility] Last Admin: 05/17/19 18:01 Dose: 17 u Documented by: Insulin Human Lispro (Humalog Kwikpen (Bkc)) 0 unit SC ACHS [facility]; Protocol Last Admin: 05/18/19 08:36 Dose: 1 u Documented by: Ketorolac Tromethamine (Toradol (Bkc)) 15 mg IV Q6H PRN PRN PRN Reason: Pain Score 1-5/10 Stop: 05/19/19 11:32 Meloxicam (Mobic) 7.5 mg PO BID [facility] Morphine Sulfate () 2 - 4 mg IV Q2H PRN PRN PRN Reason: Pain Score 4-10/10 Morphine Sulfate () 2 - 4 mg IV Q2H PRN PRN PRN Reason: Pain Score 4-10/10 Multivitamins/Minerals (Multivitamin With Minerals (Bkc)) 1 tablet PO DAILY@0800 [facility] Last Admin: 05/18/19 08:37 Dose: 1 tablet Documented by: Ondansetron HCl (Zofran) 4 mg IV Q8H PRN PRN PRN Reason: NAUSEA Oxycodone HCl (Oxyir) 5 - 10 mg PO Q4H PRN PRN PRN Reason: Pain Score 4-10/10 Pantoprazole Sodium (Protonix) 40 mg PO DAILY [facility] Last Admin: 05/18/19 06:47 Dose: 40 mg Documented by: Promethazine HCl (Phenergan) 12.5 mg IM Q6H PRN PRN; Protocol PRN Reason: NAUSEA/VOMITING Senna/Docusate Sodium (Senokot-S, Pattie-Colace) 2 tablet PO BID [facility] Last Admin: 05/18/19 08:40 Dose: 2 tablet Documented by: Sertraline HCl (Zoloft) 25 mg PO BID [facility] Last Admin: 05/18/19 08:41 Dose: 25 mg Documented by: Sodium Chloride () 10 - 40 ml IV UD PRN PRN Reason: SALINE FLUSH STROKE Vital Signs/Narrative: Vital Signs Temp Pulse Resp BP Pulse Ox 05/18/19 08:26 89 05/18/19 08:21 97.7 F L 65 16 103/46 L 99 Medical Necessity - Tobacco Use Smoking Status: Never smoker Tobacco Use: Non-smoker Assessment/Plan 1. Right hip revision * today is POD 1 * pain is well controlled * on pain meds per orthopedics * incentive spirometer * PT/OT on board * 2. Acute on chronic anemia * Hb today is 7.3. previous Hb from 04/24/2019 was 11.4 * likely due to acute blood loss from surgery * to be transfused with 2 units of PRBCs * on iron supplementation * 3. Hyperlipidemia: on Zetia 4. Anxiety and depression: On Zoloft. 5. Paroxysmal A. fib: Currently rate and rhythm controlled. Status post pacemaker. 6. GERD: On famotidine. 7. Hypertension: On hydrochlorothiazide. 8. Type 2 diabetes mellitus: On Lantus 25 units nightly and insulin sliding scale. Accu-Cheks AC at bedtime. DVT prophlaxis: will defer to orthopedics, the primary service Inpatient E&M: 71702 Subs Hosp L2
--- NOTE | 2019-05-18 10:50 | CASEMGMT ---
LEONILA BERRY Face to Face with patient for initial transition planning/care coordination assessment. LEONILA BERRY introduced self and role at [facility]. Patient sitting up in chair, alert and oriented. Patient willing to participate in assessment and is able to answer all questions appropriately. Care providers, pharmacy, and demographics verified. PCP: Rita Specialists: Sandra Daniel Pharmacy: [facility] in [place] Insurance: Self Pay Prescription Benefit: Self Pay LNOK: Jaswant Living Arrangements: with . Pt's daughter is coming from [place] to stay with patient for a week after pt is discharged to assist. Transportation: Pt's is able to transport to appointments. DME/HHC: Walker, reachers, W/C, shower chair but also has a walk-in shower with bench seat, BSC, raised toilet seat. Previous HH/SNF: Denies previous HH. Pt to [facility] after first revision. Previous level of function: Pt was independent with ADL's including bathing, meal preparation, laundry and light housekeeping. States her step-daughters take turns providing weekly house cleaning. Disposition Plan: Home with assistance of and daughter. Pt requests outpatient therapy. List of providers with pricing provided and pt selected [facility] in [place]. Confidential voicemail left with Dr. Flores's office requesting prescription be sent to [facility]. This LEONILA BERRY spoke with Whitley at [facility] to notify of outpt tx need with anticipated dc date of tomorrow 05/19/2019 and start of therapy on Wednesday05/22/2019. Whitley states this can be accommodated and she will contact pt to arrange the appointment. Demographics and most recent progress note faxed to Whitley as requested. Shahab Pena RN
[2019-05-18 11:21] LABS: Bedside Glucose 230 mg/dL (70-110)
[2019-05-18] MEDS: Insulin Lispro 100 UNIT/ML INSULN.PEN 12 UNIT SC (12:13)
[2019-05-18 15:09] LABS: Hematocrit 22.1 % (37-47); Hemoglobin 7.6 g/dL (12.0-15.0)
[2019-05-18 16:10] LABS: Bedside Glucose 179 mg/dL (70-110)
[2019-05-18] MEDS: Nystatin Powder 15gm Bottle 1 APPLIC TOPICAL (22:10)
[2019-05-18 22:31] LABS: Bedside Glucose 186 mg/dL (70-110)
[2019-05-19 02:49] VITALS: BP 125/53; PULSE 80; RESP 18; TEMP 37.3; O2SAT 92
[2019-05-19 06:00] LABS: Hematocrit 27.2 % (37-47); Hemoglobin 9.2 g/dL (12.0-15.0); Mean Corp Hgb Conc 33.8 g/dL (32-36); Mean Corpuscular Hgb 31.8 pg (27.0-32.0); Mean Corpuscular Volume 94.1 fL (81-99); Mean Platelet Vol. 9.9 fl (6.2-12.0); Platelet Count 214 K/mm3 (150-450); RBC Distribution Width CV 15.9 % (11.6-14.6); RBC Distribution Width SD 54.2 fl (35.1-43.9); Red Blood Count 2.89 M/mm3 (4.2-5.4); White Blood Count 10.4 K/mm3 (4.4-11.0)
[2019-05-19] MEDS: Nystatin Powder 15gm Bottle 1 APPLIC TOPICAL (06:17)
[2019-05-19] MEDS: Enoxaparin 40 MG/0.4 ML Syringe SC (06:18)
[2019-05-19] MEDS: Acetaminophen 500 MG Tablet 1000 MG PO ×2 (06:18→14:24)
[2019-05-19] MEDS: Insulin Lispro 100 UNIT/ML INSULN.PEN SC ×2 (06:25→11:44)
[2019-05-19 07:35] VITALS: O2SAT 92
--- NOTE | 2019-05-19 08:26 | PN.ORTHO_ITS ---
Subjective: Patient is doing well today. No shortness of breath. She is walking with physical therapy in the [place]. She notes that much of her thigh pain is resolved the pain now is different associated with surgery. She feels better putting weight on her leg today. Some of her color has returned. She responded well to 2 units of packed red blood cells yesterday. No calf pain. Objective: Postoperative x-rays of the right hip reveal stable well fixed cemented proximal third femoral replacement. - Physical Exam Vitals/I&O's: Vital Signs Temp Pulse Resp BP Pulse Ox 99.1 F 80 18 125/53 H 92 05/19/19 02:49 05/19/19 02:49 05/19/19 02:49 05/19/19 02:49 05/19/19 02:49 Oxygen Flow Rate (L/min) 2 Oxygen Delivery Method Room Air Weight: 209 lb 7.026 oz Body Mass Index (BMI) 40.2 Finger Stick Blood Glucose 180 Intake and Output for Last 24 Hours 05/17/19 05/18/19 05/19/19 23:59 23:59 23:59 Intake Total 3890.08 / 4390.08 4020.25 / 4020.25 700 / 700 Output Total 1300 / 1300 1200 / 1200 Balance 3890.08 / 3790.08 2720.25 / 2720.25 -500 / -500 General: Alert, Oriented x3, Cooperative, - - Patient is up to the bathroom this morning. Patient has return of color. Extremities: - - Right lower extremity: Dressing is clean dry and intact Sensations intact to light touch saphenous, sural, superficial peroneal, deep peroneal, and tibial distributions Motors intact EHL, DF, PF calves are soft and supple Microbiology Past 72 Hours 05/17/19 10:50 Tissue - Hip Gram Stain - Final 05/17/19 10:50 Tissue - Hip Wound Culture - Preliminary No growth-Final to follow 05/17/19 10:50 Tissue - Hip Gram Stain - Final 05/17/19 10:50 Tissue - Hip Wound Culture - Preliminary No growth-Final to follow 05/17/19 10:50 Tissue - Hip Gram Stain - Final 05/17/19 10:50 Tissue - Hip Wound Culture - Preliminary No growth-Final to follow Laboratory Results 05/18/19 08:00: Blood Type O POSITIVE, Antibody Screen NEGATIVE, Crossmatch See Detail 05/18/19 11:11: POC Glucose 230 H 05/18/19 14:56: Hgb 7.6 L, Hct 22.1 L 05/18/19 16:03: POC Glucose 179 H 05/18/19 22:16: POC Glucose 186 H 05/19/19 05:54: WBC 10.4, RBC 2.89 L, Hgb 9.2 L, Hct 27.2 L, MCV 94.1 D, MCH 31.8, MCHC 33.8, RDW Std Deviation 54.2 H, RDW Coeff of Bettye 15.9 H, Plt Count 214, MPV 9.9 Current Medications Acebutolol HCl (Acebutolol Hcl) 400 mg PO BID [facility] Last Admin: 05/18/19 22:06 Dose: 400 mg Documented by: Acetaminophen (Tylenol) 1,000 mg PO Q8 [facility] Last Admin: 05/19/19 06:18 Dose: 1,000 mg Documented by: Calcium/Vitamin D (Os-Meliton 500mg + D) [facility] Last Admin: 05/18/19 17:04 Dose: 1 tablet Documented by: Cholecalciferol (Vitamin D (25mcg)) [facility] Last Admin: 05/18/19 08:37 Dose: 1,000 unit Documented by: Clopidogrel Bisulfate (Plavix) 75 mg PO DAILY [facility] Last Admin: 05/18/19 08:40 Dose: 75 mg Documented by: Doxycycline Monohydrate (Doxycycline) 100 mg PO BID [facility] Last Admin: 05/18/19 22:08 Dose: 100 mg Documented by: Ezetimibe (Zetia) 10 mg PO DAILY [facility] Last Admin: 05/18/19 08:44 Dose: 10 mg Documented by: Enoxaparin Sodium (Lovenox) 40 mg SC DAILY@0600 [facility] Last Admin: 05/19/19 06:18 Dose: 40 mg Documented by: Enteral Nutritional Formula (Ensure Surgery) 237 ml PO TIDCM [facility] Last Admin: 05/18/19 17:04 Dose: 237 ml Documented by: Famotidine (Pepcid) 20 mg PO DAILY [facility] Last Admin: 05/18/19 08:40 Dose: 20 mg Documented by: Ferrous Sulfate (Ferrous Sulfate) 325 mg PO DAILY@0800 [facility] Last Admin: 05/18/19 08:37 Dose: 325 mg Documented by: Hydralazine HCl (Apresoline Iv) 10 mg IV Q4H PRN PRN PRN Reason: SBP > 160 Hydrochlorothiazide (Hctz) 25 mg PO DAILY [facility] Last Admin: 05/18/19 08:39 Dose: 25 mg Documented by: Insulin Glargine (Lantus (Bkc)) 25 units SC QHS [facility] Last Admin: 05/18/19 22:18 Dose: 25 u Documented by: Insulin Human Lispro (Humalog Kwikpen (Bkc)) 12 unit SC LUNCH [facility] Last Admin: 05/18/19 12:13 Dose: 12 u Documented by: Insulin Human Lispro (Humalog Kwikpen (Bkc)) 17 unit SC DAILY@0800 [facility] Last Admin: 05/18/19 08:35 Dose: 17 u Documented by: Insulin Human Lispro (Humalog Kwikpen (Bkc)) 17 unit SC DINNER [facility] Last Admin: 05/18/19 17:02 Dose: 17 u Documented by: Insulin Human Lispro (Humalog Kwikpen (Bkc)) 0 unit SC ACHS [facility]; Protocol Last Admin: 05/19/19 06:25 Dose: 1 u Documented by: Ketorolac Tromethamine (Toradol (Bkc)) 15 mg IV Q6H PRN PRN PRN Reason: Pain Score 1-5/10 Stop: 05/19/19 11:32 Meloxicam (Mobic) 7.5 mg PO BID [facility] Morphine Sulfate () 2 - 4 mg IV Q2H PRN PRN PRN Reason: Pain Score 4-10/10 Morphine Sulfate () 2 - 4 mg IV Q2H PRN PRN PRN Reason: Pain Score 4-10/10 Multivitamins/Minerals (Multivitamin With Minerals (Bkc)) 1 tablet PO DAILY@0800 [facility] Last Admin: 05/18/19 08:37 Dose: 1 tablet Documented by: Nystatin (Mycostatin Powder) 1 applic TOPICAL TID [facility]; Protocol Last Admin: 05/19/19 06:17 Dose: 1 applic Documented by: Ondansetron HCl (Zofran) 4 mg IV Q8H PRN PRN PRN Reason: NAUSEA Oxycodone HCl (Oxyir) 5 - 10 mg PO Q4H PRN PRN PRN Reason: Pain Score 4-10/10 Pantoprazole Sodium (Protonix) 40 mg PO DAILY [facility] Last Admin: 05/18/19 06:47 Dose: 40 mg Documented by: Promethazine HCl (Phenergan) 12.5 mg IM Q6H PRN PRN; Protocol PRN Reason: NAUSEA/VOMITING Senna/Docusate Sodium (Senokot-S, Pattie-Colace) 2 tablet PO BID [facility] Last Admin: 05/18/19 22:07 Dose: 2 tablet Documented by: Sertraline HCl (Zoloft) 25 mg PO BID [facility] Last Admin: 05/18/19 22:07 Dose: 25 mg Documented by: Sodium Chloride () 10 - 40 ml IV UD PRN PRN Reason: SALINE FLUSH Medical Necessity - Tobacco Use Smoking Status: Never smoker Tobacco Use: Non-smoker Assessment/Plan 1. S/P right revision total hip arthroplasty POD #2 2. Continue Pain Medications: Tylenol and OxyIR 3. DVT Prophylaxis: Lovenox for 2 weeks postoperatively, and continuation of Lovenox patient will remain on her Plavix 4. PT/OT: Weightbearing as tolerated with walker. Strict posterior hip dislocation precautions for 3 months. 5. Postoperative anemia secondary to acute blood loss versus hemodilution, Hb: 9.2 and a patient responded well to 2 units of packed red blood cells. Blood pressures have stabilized. Patient does have history of iron deficiency 6. Reactive leukocytosis: Resolved, 10.4 today. Afebrile 7. Continue antibiotics while following cultures: Currently pending. Patient will be on doxycycline for 1 week postoperatively. All Gram stain's are positive for gram-positive cocci in clusters, infectious disease was consulted for likely chronic suppression due to her history 8. Encouraged Incentive Spirometry 9. Continue postoperative medical management per medicine: Appreciate input and assistance with medical comorbidities 10. Disposition: Plan will be for possible discharge home today as patient is done well with therapy. Plan will be to discontinue the Lovenox in 2 weeks. She will follow-up in the office in 2 weeks for wound check and x-rays. She will be weightbearing as tolerated with her walker upon discharge. TONIO [facility] Office:
[2019-05-19 08:49] VITALS: BP 139/74; PULSE 68; RESP 18; TEMP 36.8; O2SAT 97
--- NOTE | 2019-05-19 08:49 | PCM.DC.THR ---
Discharge Diet: No Restrictions Discharge Activity: May Not Drive - while taking narcotic pain medications. May shower in (days): 3 - only if incision is dry and without drainage. Do NOT soak/submerge in tub/pool/monreal/stream/hot tub. May resume sexual activity in: 6-8 weeks Weight Bearing Status: Weight bearing as tolerated Additional Activity Instructions:: Wear elastic stockings for 2 weeks. DO NOT use alcohol with narcotic pain medication. DO NOT make important decisions while taking narcotic medication. If you have problems with taking your medication (rash, itching, nausea, etc.) call the office at once. Call your doctor if your incision/area has: Increased Pain/ Swelling, Increased Redness, Foul Smelling Discharge Call your doctor if you observe: Fever of 101 or Higher Remove Dressing in (days):: 05-22-2019 Cleanse incision/area with: Keep Dressing Clean & Dry Additional Instructions: If incision is clean dry and intact may leave the wound open to air and continue showering. If there is continued drainage continue daily dry dressing changes and keep incision clean dry and intact until there is no drainage. Allergies/Adverse Reactions: Allergies amoxicillin Allergy (Verified 05/17/19 06:00) Unknown apixaban [From Eliquis] Allergy (Verified 05/17/19 06:00) Unknown atenolol Allergy (Verified 05/17/19 06:00) Unknown cephalexin [From Keflex] Allergy (Verified 05/17/19 06:00) Rash Cephalosporins Allergy (Verified 05/17/19 06:00) Rash fenofibrate [From Tricor] Allergy (Verified 05/17/19 06:00) Unknown hydrocodone [From [place]] Allergy (Verified 05/17/19 06:00) Rash pioglitazone [From Actos] Allergy (Verified 05/17/19 06:00) Unknown sulfamethoxazole [From Bactrim] Allergy (Verified 05/17/19 06:00) Hives trimethoprim [From Bactrim] Allergy (Verified 05/17/19 06:00) Hives captopril Adverse Reaction (Verified 05/17/19 06:00) Itching diphenhydramine [From Benadryl] Adverse Reaction (Verified 05/17/19 06:00) Unknown gemfibrozil [From Lopid] Adverse Reaction (Verified 05/17/19 06:00) Nausea metformin [From Glucophage] Adverse Reaction (Verified 05/17/19 06:00) Nausea sitagliptin [From Januvia] Adverse Reaction (Verified 05/17/19 06:00) cold hands Omdmhbd-Ybn-Smd Reductase Inhibitor Adverse Reaction (Verified 05/17/19 06:00) muscle pain Sulfa (Sulfonamide Antibiotics) Adverse Reaction (Verified 05/17/19 06:00) Unknown Medications to take at Discharge Acebutolol HCl 400 mg PO BID 04/24/19 Calcium Carb/Vit D3/Minerals [ Calcium 600+Minerals Tab] 1 ea PO BID 04/24/19 Cholecalciferol (VIT D3) [Vitamin D3] 1,000 unit PO DAILY 04/24/19 Clopidogrel Bisulfate [Clopidogrel] 75 mg PO DAILY 04/24/19 Esomeprazole Mag Trihydrate [Nexium] 40 mg PO DAILY 04/24/19 Ezetimibe [Zetia] 10 mg PO DAILY 04/24/19 Ferrous Sulfate 325 mg PO DAILY 04/24/19 Herb Lax 1 tab PO PRN PRN 04/24/19 Hydrochlorothiazide [Hctz] 25 mg PO DAILY 04/24/19 Insulin Glargine [Lantus SoloStar Pen] 25 - 28 units SUBCUT QHS 04/24/19 Insulin Lispro [Humalog KwikPen] 17 unit SQ DAILY 04/24/19 Insulin Lispro [Humalog KwikPen] 17 unit SQ DINNER 04/24/19 Insulin Lispro [Humalog Kwikpen] 12 unit SQ LUNCH 04/24/19 Lecithin, Soy [Lecithin] 800 mg PO BID 04/24/19 Liver Detox Complex 1 tab PO BID 04/24/19 Multivitamin with Minerals [Multiple Vitamin] 1 ea PO DAILY 04/24/19 [place] [employer] 1 tab PO BID 04/24/19 Sertraline HCl [Zoloft] 25 mg PO BID 04/24/19 Sr Camila C 500 mg PO BID 04/24/19 Vital Mag 1 tab PO DAILY 04/24/19 Vitamin B Complex 1 ea PO BID 04/24/19 Vitamin E 400 unit PO DAILY 04/24/19 Acetaminophen [Tylenol] 1,000 mg PO Q8 #90 tab 05/19/19 Doxycycline 100 mg PO BID #20 cap 05/19/19 Enoxaparin [Lovenox] 40 mg SUBCUT DAILY@0600 #14 syringe 05/19/19 Ensure Surgery 237 ml PO TIDCM #60 liquid 05/19/19 Oxycodone [Oxyir] 5 - 10 mg PO Q4H PRN PRN 7 Days #60 tablet 05/19/19 Senna/Docusate Sodium [Senokot-S] 2 tab PO BID #20 tab 05/19/19 The following prescriptions were given: Doxycycline 100 mg PO BID #20 cap Transmission Status: Pending to [id number] Ensure Surgery 237 ml PO TIDCM #60 liquid Transmission Status: Pending to [id number] Enoxaparin [Lovenox] 40 mg SUBCUT DAILY@0600 #14 syringe Transmission Status: Pending to [id number] Oxycodone [Oxyir] 5 - 10 mg PO Q4H PRN PRN 7 Days #60 tablet PRN Reason: Pain Score 4-10/10 Transmission Status: Received by [id number] Senna/Docusate Sodium [Senokot-S] 2 tab PO BID #20 tab Transmission Status: Pending to [id number] Acetaminophen [Tylenol] 1,000 mg PO Q8 #90 tab Transmission Status: Pending to [id number] Primary Care Physician: Mumtaz Salinas [Primary Care Provider] - Test Results: Test results from this visit will be discussed in further detail at your follow-up appointment, if applicable. Please Follow Up With: Celestino Salazar PA-C When: 05-31-2019
--- NOTE | 2019-05-19 08:51 | PCM.DC.SUM ---
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 Intraoperatively Cell Saver was used and patient was given back 125 mL of blood. Postoperatively patient's hemoglobin dropped to the low sevens. She was given 2 units of packed red blood cells on the floor. She is done well with physical therapy. Her dressing is remained clean and dry. Her hypotension and anemic symptoms have resolved. She is diagnosed with acute on chronic anemia secondary to acute intraoperative blood loss. Cultures so far have been negative however Gram stain showed gram-positive cocci. Infectious disease was consulted and patient was discharged on antibiotics appropriately. She will likely need chronic suppression antibiotics. She was discharged to home with outpatient physical therapy. - Physical Exam Vitals/I&O's: Vital Signs Temp Pulse Resp BP Pulse Ox 99.1 F 80 18 125/53 H 92 05/19/19 02:49 05/19/19 02:49 05/19/19 02:49 05/19/19 02:49 05/19/19 02:49 Oxygen Flow Rate (L/min) 2 Oxygen Delivery Method Room Air Weight: 209 lb 7.026 oz Body Mass Index (BMI) 40.2 Finger Stick Blood Glucose 180 Intake and Output for Last 24 Hours 05/17/19 05/18/19 05/19/19 23:59 23:59 23:59 Intake Total 3890.08 / 4390.08 4020.25 / 4020.25 700 / 700 Output Total 1300 / 1300 1200 / 1200 Balance 3890.08 / 3790.08 2720.25 / 2720.25 -500 / -500 General: Alert, Oriented x3, Cooperative Extremities: - - Right lower extremity: Dressing is clean dry and intact Sensations intact to light touch saphenous, sural, superficial peroneal, deep peroneal, and tibial distributions Motors intact EHL, DF, PF calves are soft and supple Microbiology Past 72 Hours 05/17/19 10:50 Tissue - Hip Gram Stain - Final 05/17/19 10:50 Tissue - Hip Wound Culture - Preliminary No growth-Final to follow 05/17/19 10:50 Tissue - Hip Gram Stain - Final 05/17/19 10:50 Tissue - Hip Wound Culture - Preliminary No growth-Final to follow 05/17/19 10:50 Tissue - Hip Gram Stain - Final 05/17/19 10:50 Tissue - Hip Wound Culture - Preliminary No growth-Final to follow Laboratory Results 05/18/19 08:00: Blood Type O POSITIVE, Antibody Screen NEGATIVE, Crossmatch See Detail 05/18/19 11:11: POC Glucose 230 H 05/18/19 14:56: Hgb 7.6 L, Hct 22.1 L 05/18/19 16:03: POC Glucose 179 H 05/18/19 22:16: POC Glucose 186 H 05/19/19 05:54: WBC 10.4, RBC 2.89 L, Hgb 9.2 L, Hct 27.2 L, MCV 94.1 D, MCH 31.8, MCHC 33.8, RDW Std Deviation 54.2 H, RDW Coeff of Bettye 15.9 H, Plt Count 214, MPV 9.9 Current Medications Acebutolol HCl (Acebutolol Hcl) 400 mg PO BID REPLACED BY [facility] Last Admin: 05/18/19 22:06 Dose: 400 mg Documented by: Acetaminophen (Tylenol) 1,000 mg PO Q8 REPLACED BY [facility] Last Admin: 05/19/19 06:18 Dose: 1,000 mg Documented by: Calcium/Vitamin D (Os-Meliton 500mg + D) [facility] Last Admin: 05/18/19 17:04 Dose: 1 tablet Documented by: Cholecalciferol (Vitamin D (25mcg)) 1,[facility] Last Admin: 05/18/19 08:37 Dose: 1,000 unit Documented by: Clopidogrel Bisulfate (Plavix) 75 mg PO DAILY REPLACED BY [facility] Last Admin: 05/18/19 08:40 Dose: 75 mg Documented by: Doxycycline Monohydrate (Doxycycline) 100 mg PO BID REPLACED BY [facility] Last Admin: 05/18/19 22:08 Dose: 100 mg Documented by: Ezetimibe (Zetia) 10 mg PO DAILY REPLACED BY [facility] Last Admin: 05/18/19 08:44 Dose: 10 mg Documented by: Enoxaparin Sodium (Lovenox) 40 mg SC DAILY@0600 REPLACED BY [facility] Last Admin: 05/19/19 06:18 Dose: 40 mg Documented by: Enteral Nutritional Formula (Ensure Surgery) 237 ml PO TIDCM REPLACED BY [facility] Last Admin: 05/18/19 17:04 Dose: 237 ml Documented by: Famotidine (Pepcid) 20 mg PO DAILY REPLACED BY [facility] Last Admin: 05/18/19 08:40 Dose: 20 mg Documented by: Ferrous Sulfate (Ferrous Sulfate) 325 mg PO DAILY@0800 REPLACED BY [facility] Last Admin: 05/18/19 08:37 Dose: 325 mg Documented by: Hydralazine HCl (Apresoline Iv) 10 mg IV Q4H PRN PRN PRN Reason: SBP > 160 Hydrochlorothiazide (Hctz) 25 mg PO DAILY REPLACED BY [facility] Last Admin: 05/18/19 08:39 Dose: 25 mg Documented by: Insulin Glargine (Lantus (Bk)) 25 units SC QHS REPLACED BY [facility] Last Admin: 05/18/19 22:18 Dose: 25 u Documented by: Insulin Human Lispro (Humalog Kwikpen (Bk)) 12 unit SC LUNCH REPLACED BY [facility] Last Admin: 05/18/19 12:13 Dose: 12 u Documented by: Insulin Human Lispro (Humalog Kwikpen (Bk)) 17 unit SC DAILY@0800 REPLACED BY [facility] Last Admin: 05/18/19 08:35 Dose: 17 u Documented by: Insulin Human Lispro (Humalog Kwikpen (Bkc)) 17 unit SC DINNER REPLACED BY [facility] Last Admin: 05/18/19 17:02 Dose: 17 u Documented by: Insulin Human Lispro (Humalog Kwikpen (Bk)) 0 unit SC ACHS REPLACED BY [facility]; Protocol Last Admin: 05/19/19 06:25 Dose: 1 u Documented by: Ketorolac Tromethamine (Toradol (Bk)) 15 mg IV Q6H PRN PRN PRN Reason: Pain Score 1-5/10 Stop: 05/19/19 11:32 Meloxicam (Mobic) 7.5 mg PO BID REPLACED BY [facility] Morphine Sulfate () 2 - 4 mg IV Q2H PRN PRN PRN Reason: Pain Score 4-10/10 Morphine Sulfate () 2 - 4 mg IV Q2H PRN PRN PRN Reason: Pain Score 4-10/10 Multivitamins/Minerals (Multivitamin With Minerals (Bkc)) 1 tablet PO DAILY@0800 REPLACED BY [facility] Last Admin: 05/18/19 08:37 Dose: 1 tablet Documented by: Nystatin (Mycostatin Powder) 1 applic TOPICAL TID REPLACED BY [facility]; Protocol Last Admin: 05/19/19 06:17 Dose: 1 applic Documented by: Ondansetron HCl (Zofran) 4 mg IV Q8H PRN PRN PRN Reason: NAUSEA Oxycodone HCl (Oxyir) 5 - 10 mg PO Q4H PRN PRN PRN Reason: Pain Score 4-10/10 Pantoprazole Sodium (Protonix) 40 mg PO DAILY REPLACED BY [facility] Last Admin: 05/18/19 06:47 Dose: 40 mg Documented by: Promethazine HCl (Phenergan) 12.5 mg IM Q6H PRN PRN; Protocol PRN Reason: NAUSEA/VOMITING Senna/Docusate Sodium (Senokot-S, Pattie-Colace) 2 tablet PO BID REPLACED BY [facility] Last Admin: 05/18/19 22:07 Dose: 2 tablet Documented by: Sertraline HCl (Zoloft) 25 mg PO BID REPLACED BY [facility] Last Admin: 05/18/19 22:07 Dose: 25 mg Documented by: Sodium Chloride () 10 - 40 ml IV UD PRN PRN Reason: SALINE FLUSH Discharge Diet: No Restrictions Discharge Activity: May Not Drive - while taking narcotic pain medications. May shower in (days): 3 - only if incision is dry and without drainage. Do NOT soak/submerge in tub/pool/monreal/stream/hot tub. May resume sexual activity in: 6-8 weeks Weight Bearing Status: Weight bearing as tolerated Additional Activity Instructions:: Wear elastic stockings for 2 weeks. DO NOT use alcohol with narcotic pain medication. DO NOT make important decisions while taking narcotic medication. If you have problems with taking your medication (rash, itching, nausea, etc.) call the office at once. Call your doctor if your incision/area has: Increased Pain/ Swelling, Increased Redness, Foul Smelling Discharge Call your doctor if you observe: Fever of 101 or Higher Remove Dressing in (days):: 05-22-2019 Cleanse incision/area with: Keep Dressing Clean & Dry Home Medications: Medications to take at Discharge Acebutolol HCl 400 mg PO BID 04/24/19 Calcium Carb/Vit D3/Minerals [ Calcium 600+Minerals Tab] 1 ea PO BID 04/24/19 Cholecalciferol (VIT D3) [Vitamin D3] 1,000 unit PO DAILY 04/24/19 Clopidogrel Bisulfate [Clopidogrel] 75 mg PO DAILY 04/24/19 Esomeprazole Mag Trihydrate [Nexium] 40 mg PO DAILY 04/24/19 Ezetimibe [Zetia] 10 mg PO DAILY 04/24/19 Ferrous Sulfate 325 mg PO DAILY 04/24/19 Herb Lax 1 tab PO PRN PRN 04/24/19 Hydrochlorothiazide [Hctz] 25 mg PO DAILY 04/24/19 Insulin Glargine [Lantus SoloStar Pen] 25 - 28 units SUBCUT QHS 04/24/19 Insulin Lispro [Humalog KwikPen] 17 unit SQ DAILY 04/24/19 Insulin Lispro [Humalog KwikPen] 17 unit SQ DINNER 04/24/19 Insulin Lispro [Humalog Kwikpen] 12 unit SQ LUNCH 04/24/19 Lecithin, Soy [Lecithin] 800 mg PO BID 04/24/19 Liver Detox Complex 1 tab PO BID 04/24/19 Multivitamin with Minerals [Multiple Vitamin] 1 ea PO DAILY 04/24/19 [place] Guard 1 tab PO BID 04/24/19 Sertraline HCl [Zoloft] 25 mg PO BID 04/24/19 Sr Camila C 500 mg PO BID 04/24/19 Vital Mag 1 tab PO DAILY 04/24/19 Vitamin B Complex 1 ea PO BID 04/24/19 Vitamin E 400 unit PO DAILY 04/24/19 Acetaminophen [Tylenol] 1,000 mg PO Q8 #90 tab 05/19/19 Doxycycline 100 mg PO BID #20 cap 05/19/19 Enoxaparin [Lovenox] 40 mg SUBCUT DAILY@0600 #14 syringe 05/19/19 Ensure Surgery 237 ml PO TIDCM #60 liquid 05/19/19 Oxycodone [Oxyir] 5 - 10 mg PO Q4H PRN PRN 7 Days #60 tablet 05/19/19 Senna/Docusate Sodium [Senokot-S] 2 tab PO BID #20 tab 05/19/19 Following Prescrptions Were Given to Patient: Doxycycline 100 mg PO BID #20 cap Transmission Status: Pending to [id number] Ensure Surgery 237 ml PO TIDCM #60 liquid Transmission Status: Pending to [id number] Enoxaparin [Lovenox] 40 mg SUBCUT DAILY@0600 #14 syringe Transmission Status: Pending to [id number] Oxycodone [Oxyir] 5 - 10 mg PO Q4H PRN PRN 7 Days #60 tablet PRN Reason: Pain Score 4-10/10 Transmission Status: Received by [id number] Senna/Docusate Sodium [Senokot-S] 2 tab PO BID #20 tab Transmission Status: Pending to [id number] Acetaminophen [Tylenol] 1,000 mg PO Q8 #90 tab Transmission Status: Pending to [id number] Primary Care Physician: Mumtaz Salinas [Primary Care Provider] - Please Follow Up With: Celestino Salazar PA-C When: 05-31-2019 Additional Instructions: If incision is clean dry and intact may leave the wound open to air and continue showering. If there is continued drainage continue daily dry dressing changes and keep incision clean dry and intact until there is no drainage. Medical Necessity - Tobacco Use Smoking Status: Never smoker Tobacco Use: Non-smoker Meaningful Use Info Meaningful Use Diagnoses (Choose all that apply): None applicable, VTE - VTE Anticoag overlap given w/in hospital stay or rx'd at fl?: No Reason overlap not ordered, prescribed, or given for 5 days: Medical Contraindication
--- NOTE | 2019-05-19 09:17 | PN_ITS ---
Subjective: Patient seen and examined. She has no complaints this morning. Pain is well controlled. Review of stems otherwise negative. Hemoglobin today is 9.2. She received 2 units of packed red blood cells. She is on room air. She has remained hemodynamically stable. Vitals/I&O's: Vital Signs Temp Pulse Resp BP Pulse Ox 99.1 F 80 18 125/53 H 92 05/19/19 02:49 05/19/19 02:49 05/19/19 02:49 05/19/19 02:49 05/19/19 07:35 Oxygen Flow Rate (L/min) 2 Oxygen Delivery Method Room Air Weight: 209 lb 7.026 oz Body Mass Index (BMI) 40.2 Finger Stick Blood Glucose 180 Intake and Output for Last 24 Hours 05/17/19 05/18/19 05/19/19 23:59 23:59 23:59 Intake Total 3890.08 / 4390.08 4020.25 / 4020.25 700 / 700 Output Total 1300 / 1300 1200 / 1200 Balance 3890.08 / 3790.08 2720.25 / 2720.25 -500 / -500 General: Alert, Oriented x3, Cooperative HEENT: Atraumatic, PERRLA, EOMI, Normocephalic Oral: Moist Mucosa Neck: Supple, No JVD, Negative Carotid Bruits Lungs: Clear to auscultation, Normal air movement, No rhonchi, No wheeze, No rales Cardiovascular: Regular rate, Regular Rhythm, Normal S1, Normal S2, No murmurs Abdomen: Bowel Sounds Present, Soft, Non Tender, Non-Distended, No Hepato- splenomegaly Extremities: No clubbing, No cyanosis, No edema, Capillary Refill Less than 3 Seconds Skin: No rashes, No breakdown Musculoskeletal: No Tenderness to Palpation of Joints or Extremities, - - intact right hip dressing. Lymphatic: No Cervical, Supraclavicular, or Inguinal Adenopathy Neurological: Cranial nerves II-XII grossly intact, Neuro grossly intact, Motor Exam 5/5 strength throughout Psych/Mental Status: Normal Affect, Appropriate, Alert and oriented to time, place, person, mood and affect Microbiology Past 72 Hours 05/17/19 10:50 Tissue - Hip Gram Stain - Final 05/17/19 10:50 Tissue - Hip Wound Culture - Preliminary No growth-Final to follow 05/17/19 10:50 Tissue - Hip Gram Stain - Final 05/17/19 10:50 Tissue - Hip Wound Culture - Preliminary No growth-Final to follow 05/17/19 10:50 Tissue - Hip Gram Stain - Final 05/17/19 10:50 Tissue - Hip Wound Culture - Preliminary No growth-Final to follow Laboratory Results 05/18/19 08:00: Blood Type O POSITIVE, Antibody Screen NEGATIVE, Crossmatch See Detail 05/18/19 11:11: POC Glucose 230 H 05/18/19 14:56: Hgb 7.6 L, Hct 22.1 L 05/18/19 16:03: POC Glucose 179 H 05/18/19 22:16: POC Glucose 186 H 05/19/19 05:54: WBC 10.4, RBC 2.89 L, Hgb 9.2 L, Hct 27.2 L, MCV 94.1 D, MCH 31.8, MCHC 33.8, RDW Std Deviation 54.2 H, RDW Coeff of Bettye 15.9 H, Plt Count 214, MPV 9.9 Diagnostic Data Hip X-Ray 05/17/19 11:30 IMPRESSION: 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 There is good alignment. Postoperative soft tissue changes. Electronically Signed: Ck Batista, at 13:07 EDT , Service support , Current Medications Acebutolol HCl (Acebutolol Hcl) 400 mg PO BID [facility] Last Admin: 05/18/19 22:06 Dose: 400 mg Documented by: Acetaminophen (Tylenol) 1,000 mg PO Q8 [facility] Last Admin: 05/19/19 06:18 Dose: 1,000 mg Documented by: Calcium/Vitamin D (Os-Meliton 500mg + D) [facility] Last Admin: 05/18/19 17:04 Dose: 1 tablet Documented by: Cholecalciferol (Vitamin D (25mcg)) 1,[facility] Last Admin: 05/18/19 08:37 Dose: 1,000 unit Documented by: Clopidogrel Bisulfate (Plavix) 75 mg PO DAILY [facility] Last Admin: 05/18/19 08:40 Dose: 75 mg Documented by: Doxycycline Monohydrate (Doxycycline) 100 mg PO BID [facility] Last Admin: 05/18/19 22:08 Dose: 100 mg Documented by: Ezetimibe (Zetia) 10 mg PO DAILY [facility] Last Admin: 05/18/19 08:44 Dose: 10 mg Documented by: Enoxaparin Sodium (Lovenox) 40 mg SC DAILY@0600 [facility] Last Admin: 05/19/19 06:18 Dose: 40 mg Documented by: Enteral Nutritional Formula (Ensure Surgery) 237 ml PO TIDCM [facility] Last Admin: 05/18/19 17:04 Dose: 237 ml Documented by: Famotidine (Pepcid) 20 mg PO DAILY [facility] Last Admin: 05/18/19 08:40 Dose: 20 mg Documented by: Ferrous Sulfate (Ferrous Sulfate) 325 mg PO DAILY@0800 [facility] Last Admin: 05/18/19 08:37 Dose: 325 mg Documented by: Hydralazine HCl (Apresoline Iv) 10 mg IV Q4H PRN PRN PRN Reason: SBP > 160 Hydrochlorothiazide (Hctz) 25 mg PO DAILY [facility] Last Admin: 05/18/19 08:39 Dose: 25 mg Documented by: Insulin Glargine (Lantus (Bk)) 25 units SC QHS [facility] Last Admin: 05/18/19 22:18 Dose: 25 u Documented by: Insulin Human Lispro (Humalog Kwikpen (Bk)) 12 unit SC LUNCH [facility] Last Admin: 05/18/19 12:13 Dose: 12 u Documented by: Insulin Human Lispro (Humalog Kwikpen (Bk)) 17 unit SC DAILY@0800 [facility] Last Admin: 05/18/19 08:35 Dose: 17 u Documented by: Insulin Human Lispro (Humalog Kwikpen (Bkc)) 17 unit SC DINNER [facility] Last Admin: 05/18/19 17:02 Dose: 17 u Documented by: Insulin Human Lispro (Humalog Kwikpen (Bk)) 0 unit SC ACHS [facility]; Protocol Last Admin: 05/19/19 06:25 Dose: 1 u Documented by: Ketorolac Tromethamine (Toradol (Bkc)) 15 mg IV Q6H PRN PRN PRN Reason: Pain Score 1-5/10 Stop: 05/19/19 11:32 Meloxicam (Mobic) 7.5 mg PO BID [facility] Morphine Sulfate () 2 - 4 mg IV Q2H PRN PRN PRN Reason: Pain Score 4-10/10 Morphine Sulfate () 2 - 4 mg IV Q2H PRN PRN PRN Reason: Pain Score 4-10/10 Multivitamins/Minerals (Multivitamin With Minerals (Bkc)) 1 tablet PO DAILY@0800 [facility] Last Admin: 05/18/19 08:37 Dose: 1 tablet Documented by: Nystatin (Mycostatin Powder) 1 applic TOPICAL TID [facility]; Protocol Last Admin: 05/19/19 06:17 Dose: 1 applic Documented by: Ondansetron HCl (Zofran) 4 mg IV Q8H PRN PRN PRN Reason: NAUSEA Oxycodone HCl (Oxyir) 5 - 10 mg PO Q4H PRN PRN PRN Reason: Pain Score 4-10/10 Pantoprazole Sodium (Protonix) 40 mg PO DAILY [facility] Last Admin: 05/18/19 06:47 Dose: 40 mg Documented by: Promethazine HCl (Phenergan) 12.5 mg IM Q6H PRN PRN; Protocol PRN Reason: NAUSEA/VOMITING Senna/Docusate Sodium (Senokot-S, Pattie-Colace) 2 tablet PO BID [facility] Last Admin: 05/18/19 22:07 Dose: 2 tablet Documented by: Sertraline HCl (Zoloft) 25 mg PO BID [facility] Last Admin: 05/18/19 22:07 Dose: 25 mg Documented by: Sodium Chloride () 10 - 40 ml IV UD PRN PRN Reason: SALINE FLUSH STROKE Vital Signs/Narrative: Vital Signs Pulse Ox 05/19/19 07:35 92 Medical Necessity - Tobacco Use Smoking Status: Never smoker Tobacco Use: Non-smoker Assessment/Plan 1. Right hip revision * today is POD 2 * pain is well controlled * on pain meds per orthopedics * incentive spirometer * PT/OT on board * 2. Acute on chronic anemia * s/p 2 units of PRBCs. hb today is 9.2 * on iron supplementation * 3. Hyperlipidemia: on Zetia 4. Anxiety and depression: On Zoloft. 5. Paroxysmal A. fib: Currently rate and rhythm controlled. Status post pacemaker. 6. GERD: On famotidine. 7. Hypertension: On hydrochlorothiazide. 8. Type 2 diabetes mellitus: On Lantus 25 units nightly and insulin sliding scale. Accu-Cheks AC at bedtime. DVT prophlaxis: on lovenox, per orthopedics Disposition: patient ok for dc from hospitalist standpoint. Inpatient E&M: 71715 Subs Hosp L2
[2019-05-19] MEDS: Ferrous Sulfate 325 MG Tablet PO (09:24)
[2019-05-19] MEDS: Insulin Lispro 100 UNIT/ML INSULN.PEN 17 UNIT SC (09:25)
[2019-05-19] MEDS: Multivitamins,Ther W-Minerals Tablet 1 TABLET PO (09:25)
[2019-05-19] MEDS: Doxycycline 100 MG CAPSULE PO (09:26)
[2019-05-19] MEDS: Calcium Carb/Vitamin D 1 TABLET Tablet PO (09:26)
[2019-05-19] MEDS: hydroCHLOROthiazide 25 MG Tablet PO (09:27)
[2019-05-19] MEDS: Clopidogrel Bisulfate 75 MG Tablet PO (09:27)
[2019-05-19] MEDS: Senna/Docusate Sodium 1 Tablet 2 TABLET PO (09:27)
[2019-05-19] MEDS: Famotidine 20 MG Tablet PO (09:27)
[2019-05-19] MEDS: Pantoprazole Sodium 40 MG Tablet PO (09:27)
[2019-05-19] MEDS: Meloxicam 7.5 MG Tablet PO (09:27)
[2019-05-19] MEDS: Sertraline 50 MG Tablet 25 MG PO (09:27)
[2019-05-19] MEDS: Ezetimibe 10 MG Tablet PO (09:28)
[2019-05-19 11:50] LABS: Bedside Glucose 345 mg/dL (70-110)
[2019-05-19] MEDS: Insulin Lispro 100 UNIT/ML INSULN.PEN 12 UNIT SC (12:22)
--- NOTE | 2019-05-19 13:08 | PCM.HP.ID ---
Problem List (1) Osteoarthritis of right hip Status: Chronic Qualifiers: Osteoarthritis type: unspecified Qualified Code(s): M16.11 - Unilateral primary osteoarthritis, right hip Reason for Consult: PJI Consulted by: Dr. Flores History of Present Illness: The patient is a 78 year old F with DM, h/o R hip PJI in 2014, treated with iv abx and 2 stage repair at [facility] in [facility]. 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 Seen at [facility] a few times in the past few years. Since 2018, progressive R hip pain, mild swelling. No redness or drainage, no fever, no recent abx. Referred to Dr. Flores, fractures seen in her hardware. Taken to OR 05/16, new joint placed. 3 of 3 surgical gram stains with GPC now, cx neg so far. Feeling ok, pain much improved. Full ROS performed and neg except as noted above. - Medical History Past Medical History (Chronic Problems): Chronic Problems Osteoarthritis of right hip (Chronic) HTN (hypertension) (Chronic) HLD (hyperlipidemia) (Chronic) CAD (coronary artery disease) (Chronic) Diabetes mellitus, type II (Chronic) Morbid obesity (Chronic) Valvular heart disease (Chronic) GERD (gastroesophageal reflux disease) (Chronic) PAF (paroxysmal atrial fibrillation) (Chronic) History of DVT (deep vein thrombosis) (Chronic) Anxiety and depression (Chronic) Allergies/Adverse Reactions: Allergies amoxicillin Allergy (Verified 05/17/19 06:00) Unknown apixaban [From Eliquis] Allergy (Verified 05/17/19 06:00) Unknown atenolol Allergy (Verified 05/17/19 06:00) Unknown cephalexin [From Keflex] Allergy (Verified 05/17/19 06:00) Rash Cephalosporins Allergy (Verified 05/17/19 06:00) Rash fenofibrate [From Tricor] Allergy (Verified 05/17/19 06:00) Unknown hydrocodone [From [place]] Allergy (Verified 05/17/19 06:00) Rash pioglitazone [From Actos] Allergy (Verified 05/17/19 06:00) Unknown sulfamethoxazole [From Bactrim] Allergy (Verified 05/17/19 06:00) Hives trimethoprim [From Bactrim] Allergy (Verified 05/17/19 06:00) Hives captopril Adverse Reaction (Verified 05/17/19 06:00) Itching diphenhydramine [From Benadryl] Adverse Reaction (Verified 05/17/19 06:00) Unknown gemfibrozil [From Lopid] Adverse Reaction (Verified 05/17/19 06:00) Nausea metformin [From Glucophage] Adverse Reaction (Verified 05/17/19 06:00) Nausea sitagliptin [From Januvia] Adverse Reaction (Verified 05/17/19 06:00) cold hands Qfgdzge-Meu-Rqj Reductase Inhibitor Adverse Reaction (Verified 05/17/19 06:00) muscle pain Sulfa (Sulfonamide Antibiotics) Adverse Reaction (Verified 05/17/19 06:00) Unknown Home Medications: Ambulatory Orders Medication Instructions Recorded Acebutolol HCl 400 mg PO BID 04/24/19 Calcium Carb/Vit D3/Minerals [Sm 1 ea PO BID 04/24/19 Calcium 600+Minerals Tab] Cholecalciferol (VIT D3) [Vitamin 1,000 unit PO DAILY 04/24/19 D3] Clopidogrel Bisulfate [Clopidogrel] 75 mg PO DAILY 04/24/19 Esomeprazole Mag Trihydrate 40 mg PO DAILY 04/24/19 [Nexium] Ezetimibe [Zetia] 10 mg PO DAILY 04/24/19 Ferrous Sulfate 325 mg PO DAILY 04/24/19 Herb Lax 1 tab PO PRN PRN 04/24/19 Hydrochlorothiazide [Hctz] 25 mg PO DAILY 04/24/19 Insulin Glargine [Lantus SoloStar 25 - 28 units SUBCUT QHS 04/24/19 Pen] Insulin Lispro [Humalog KwikPen] 17 unit SQ DAILY 04/24/19 Insulin Lispro [Humalog KwikPen] 17 unit SQ DINNER 04/24/19 Insulin Lispro [Humalog Kwikpen] 12 unit SQ LUNCH 04/24/19 Lecithin, Soy [Lecithin] 800 mg PO BID 04/24/19 Liver Detox Complex 1 tab PO BID 04/24/19 Multivitamin with Minerals 1 ea PO DAILY 04/24/19 [Multiple Vitamin] Prompton Guard 1 tab PO BID 04/24/19 Sertraline HCl [Zoloft] 25 mg PO BID 04/24/19 Sr Camila C 500 mg PO BID 04/24/19 Vital Mag 1 tab PO DAILY 04/24/19 Vitamin B Complex 1 ea PO BID 04/24/19 Vitamin E 400 unit PO DAILY 04/24/19 Acetaminophen [Tylenol] 1,000 mg PO Q8 #90 tab 05/19/19 Doxycycline 100 mg PO BID #20 cap 05/19/19 Doxycycline 100 mg PO BID 30 Days #60 cap 05/19/19 Enoxaparin [Lovenox] 40 mg SUBCUT DAILY@0600 #14 syringe 05/19/19 Ensure Surgery 237 ml PO TIDCM #60 liquid 05/19/19 Oxycodone [Oxyir] 5 - 10 mg PO Q4H PRN PRN 7 Days 05/19/19 #60 tab Senna/Docusate Sodium [Senokot-S] 2 tab PO BID #20 tab 05/19/19 - Social History Tobacco Use: non-smoker Vital Signs Temp Pulse Resp BP Pulse Ox 98.3 F 68 18 139/74 H 97 05/19/19 08:49 05/19/19 08:49 05/19/19 08:49 05/19/19 08:49 05/19/19 08:49 Oxygen Flow Rate (L/min) 2 Oxygen Delivery Method Room Air Weight: 95 kg Body Mass Index (BMI) 40.2 Finger Stick Blood Glucose 180 Microbiology Past 72 Hours 05/17/19 10:50 Gram Stain - Final Tissue - Hip Wound Culture - Preliminary No growth-Final to follow 05/17/19 10:50 Gram Stain - Final Tissue - Hip Wound Culture - Preliminary No growth-Final to follow 05/17/19 10:50 Gram Stain - Final Tissue - Hip Wound Culture - Preliminary No growth-Final to follow Laboratory Tests Past 24 Hrs 05/18/19 05/18/19 05/19/19 08:00 14:56 05:54 WBC 10.4 RBC 2.89 L Hgb 7.6 L 9.2 L Hct 22.1 L 27.2 L MCV 94.1 D MCH 31.8 MCHC 33.8 RDW Std Deviation 54.2 H RDW Coeff of Bettye 15.9 H Plt Count 214 MPV 9.9 Blood Type O POSITIVE Antibody Screen NEGATIVE Crossmatch See Detail - Other Studies Radiology: [] reviewed Other Studies: [] Route of nutrition/ use of supplements: [] Nutritional Intake: [] IV Site: [] [place] Catheter: [] - Physical Exam General: Alert, Oriented x3, Cooperative, No apparent distress HEENT: Atraumatic, PERRLA, EOMI Neck: Supple, No Nodes Lungs: Clear to auscultation, Normal air movement Cardiovascular: Regular rate, Regular Rhythm Abdomen: Soft, Non Tender, Non-Distended Extremities: No edema Skin: Ulcer/ Wound - hip bandaged IV Site: Peripheral, without redness Musculoskeletal: No Tenderness to Palpation of Joints or Extremities Neurological: Cranial nerves II-XII grossly intact - Assessment/Plan Antibiotics: [] Assessment/Plan: [] R hip PJI - s/p joint revision by Dr. Flores 05/17/19. Surg cx pending, gram stain x3 with GPC. Multiple abx allergies. Requesting records from [facility] in [facility]. Asked our micro lab to hold cxs for 2 weeks. Ok for d/c home on po doxy, plan on extended course and will follow cx data. ID followup with me in 2 weeks. Thank you, will follow, d/w nursing.
[2019-05-19 13:19] VITALS: BP 136/46; PULSE 68; RESP 18; TEMP 36.8; O2SAT 99
[2019-05-20 01:26] LABS: Bedside Glucose 184 mg/dL (70-110)
== END 2019-05-19 14:55 | disposition home or self-care (01) | DRG 467 ==
LOC: ACINP 05:24 → MS3 11:47
PROVIDERS: Internal Medicine; Admitting Provider Specialist; PCP Internal Medicine; Referring Provider Specialist; Visit Provider Student in an Organized Health Care Education/Training Program
PROC: 0SR90J9 Replacement of Right Hip Joint with Synthetic Substitute, Cemented, Open Approach (ICD-10-PCS; CPT 27134; principal; 2019-05-17 07:05)
DX: T84.030A Mechanical loosening of internal right hip prosthetic joint, initial encounter (principal); D62 Acute posthemorrhagic anemia; Z68.41 Body mass index [BMI] 40.0-44.9, adult; M97.01XA Periprosthetic fracture around internal prosthetic right hip joint, initial encounter; I25.10 Atherosclerotic heart disease of native coronary artery without angina pectoris; E78.5 Hyperlipidemia, unspecified; I35.0 Nonrheumatic aortic (valve) stenosis; I10 Essential (primary) hypertension; E66.01 Morbid (severe) obesity due to excess calories; E11.9 Type 2 diabetes mellitus without complications; Z95.5 Presence of coronary angioplasty implant and graft; Z86.718 Personal history of other venous thrombosis and embolism; Z79.4 Long term (current) use of insulin; K21.9 Gastro-esophageal reflux disease without esophagitis; I48.0 Paroxysmal atrial fibrillation; F32.9 Major depressive disorder, single episode, unspecified; F41.9 Anxiety disorder, unspecified
CPT/HCPCS: 36415; 73502; 80048; 82962; 85014; 85018; 85025; 85027; 86644; 86850; 86900; 86901; 86920; 86922; 87015; 87070; 87075; 87077; 87081; 87102; 87116; 87176; 87205; 87206; 88305; 88311; 93005; 97110; 97116; 97162; 97166; 97530; 97535; 97802; 99251; C1776; J7040; J7120; P9040; G0463; J2405

== ENCOUNTER → 2020-12-26 13:09 | Outpatient (CLI) | payer SELFPAY ==
--- NOTE | 2020-12-26 13:15 | CT_ITS ---
EXAMINATION : Head CT w/ and w/out contrast HISTORY : HEARING LOSS COMPARISON : None. TECHNIQUE : Multiple contiguous axial images were obtained from the skull base to the vertex with and without intravenous contrast. A radiation dose optimization technique was used for this scan. Contrast dosage and type: 50 cc [id number] FINDINGS : The ventricles and sulci are normal in size. There is no evidence for acute intracranial hemorrhage, mass effect, or midline shift. There is no extra-axial fluid collection. No enhancing masses seen. There is normal castro-white differentiation, without CT evidence of acute ischemia or infarct. The skull base and calvarium are unremarkable. The orbits are unremarkable. Mild to moderate mucosal thickening of several ethmoid air cells, the right frontal sinus and bilateral maxillary and sphenoid sinuses. The mastoid air cells are well-aerated. The soft tissues are unremarkable. CT/Brain/Head W/WO Contrast IMPRESSION: No acute intracranial abnormality. Frontal, maxillary, sphenoid and ethmoid sinusitis. Electronically Signed: Issac Vann MD at 17:55 EDT Tel , Service support ,
[2020-12-26 13:36] LABS: CREATININE FINGERSTICK < 0.6 mg/dL (0.55-1.02); EGFR FINGERSTICK > 60.0000 mL/min (>60)
== END ==
PROVIDERS: PCP Internal Medicine; Visit Provider Otolaryngology Otolaryngology/Facial Plastic Surgery
DX: H90.3 Sensorineural hearing loss, bilateral (principal)
CPT/HCPCS: 70470; Q9967